=== PATIENT | male | born 1930 | race Caucasian/White ===

== ENCOUNTER → 2016-03-29 | Outpatient (CLI) | payer OTHER ==
[~2016-03-29] MED LIST: ACETAMINOPHEN325 M1; COUMADIN 1MG TAB1 M1 PO; COUMADIN 2 MG TA2 M1 PO; KEFLEX500 MG PO; LEVOTHYROXINE0.05 MG PO; LEVOXYL75 MCG PO; MULTIVITAMINS1 EAC7 PO; NAPROSYN250 MG PO; OSELB75 PO; OXYCODONE HCL5 M1 PO; PREDNISONE 10 M10 MG; PREDNISONE 2.52.5 MG PO; PREDNISONE 5 MG5 M1 PO; TUSSIONEX PENN473 ML PO; VANCOCIN HCL125 MG PO; VOLTAREN GEL 1100 G1 TOP
[2016-03-29 14:18] LABS: HEMOGLOBIN 13.3 gm/dL (14.0-18.0); MCH 28.1 pg (26.0-34.0); MCHC 33.2 % (28.0-37.0); MCV 84.6 fL (80.0-100.0); RBC 4.72 mil/uL (4.50-6.00); RDW 15.1 % (10.5-14.5); WBC 9.6 thou/uL (4.0-11.0)
[2016-03-29 14:32] LABS: CALCIUM 8.9 mg/dL (8.5-10.1); POTASSIUM 4.2 mmol/L (3.5-5.1)
[2016-03-29 14:35] LABS: ALBUMIN 3.3 g/dL (3.4-5.0); TOTAL BILIRUBIN 0.3 mg/dL (<0.1-1.0); TOTAL PROTEIN 6.4 g/dL (6.4-8.2)
[2016-03-30 04:11] LABS: IgA 106 mg/dL (61-437); IgG 772 mg/dL (700-1600); IgM 586 mg/dL (15-143)
== END ==
LOC: RAD 13:45
PROVIDERS: Internal Medicine Pulmonary Disease
DX: J32.9 Chronic sinusitis, unspecified (principal); R09.81 Nasal congestion; R05 Cough; H70.90 Unspecified mastoiditis, unspecified ear; H66.90 Otitis media, unspecified, unspecified ear

== ENCOUNTER → 2017-09-18 | Outpatient (CLI) | payer OTHER | LOC: RAD 14:49 | DX: R05 Cough (principal) ==

== ENCOUNTER → 2018-01-28 | Outpatient (CLI) | payer OTHER | LOC: RAD 13:32 | DX: R13.12 Dysphagia, oropharyngeal phase (principal) ==

== ENCOUNTER 2018-02-07 15:11 | Inpatient (IN) | payer OTHER ==
[~2018-02-07] VITALS: Ht 167.6 cm; Wt 71.7 kg
--- NOTE | ~2018-02-07 | H ---
[facility] [place] [address] HISTORY AND PHYSICAL Name: CHASITY BRYANT Room #: 459-P ADM IN M.R.#: [id number] Admission: 02/07/18 Attend Phys: Teja Birch MD Discharge: Date of : 29 Report #: [id number] THIS REPORT FOR: //name// CC: Teja Birch DATE OF SERVICE: 02/07/2018 CHIEF COMPLAINT: Shaking chills and vomiting. 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 He also had some vomiting and nausea and felt very weak and tired. This hit him rather suddenly. In visiting with him before admission, he told me that he was too shaky to be able to stand up and his pulse was 120 beats per minute and he was showing overt signs of respiratory distress. We notified [facility] ambulance and he was brought to [facility] for direct admission. PAST MEDICAL HISTORY: Includes hypothyroidism, polymyalgia rheumatica, chronic steroid therapy; Gilbert syndrome, gastroesophageal reflux disease. He did have Clostridium difficile a number of years ago and diverticulitis. He has also had hernia surgery. He had cervical neck surgery approximately [address] Chidi Martini. He has had tympanoplasty. He has osteoarthritis, multiple sites and pharyngeal dysphagia. ALLERGIES: He has no known drug allergies. MEDICATIONS: On admission includes prednisone 5 mg daily, levothyroxine 50 mcg daily, a multivitamin daily, pantoprazole 40 mg daily. FAMILY HISTORY: He is from a very large family. Longevity is well established in the family and osteoarthritis. SOCIAL HISTORY: The patient is to Brooke Bryant. He has 3 grown children and 2 grandchildren. He is a nonsmoker and nondrinker, has no vices that I am aware of. I believe he did smoke for short time in the very distant past. He originally came to [facility] [facility] from [place] in the late 1950s. 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 REVIEW OF SYSTEMS: The patient was somewhat confused during the history obtaining part and much of the information was obtained from his . She told me that he was not ill until after breakfast today. He ate a full breakfast including an egg and a banana and some toast and some feta cheese. She states that he got sick in the hours after breakfast and began having nausea and vomiting. When I asked the patient about abdominal pain, he denied it, but to another visiting friend he later said that he did have some slight abdominal [address] [address] HISTORY AND PHYSICAL Name: CHASITY BRYANT Room #: 459-P [facility] IN .R.#: [id number] Admission: 02/07/18 Attend Phys: Teja Birch MD Discharge: Date of : 29 Report #: [id number] discomfort, but he also said that his pain was generalized all over his body. He did not have a bowel movement today, his last one was yesterday, I believe. His chill was severe and he went immediately to bed with it. He had not taken his prednisone this morning, so he went ahead and took that, but did not feel any better after an hour. The decision was made to bring him to the hospital for further evaluation and treatment. It is noteworthy that both his and his daughter have a respiratory ailment at this time. PHYSICAL EXAMINATION: VITAL SIGNS: The patient was very warm to the touch, I did not have a thermometer at the time of my examination. His pulse was 120 per minute radial, his respiratory rate was 30. His oxygen saturation was 92% on room air at home. GENERAL: The patient is a very tired and slightly confused elderly Turkish male with significant distress, especially with respirations. HEENT: The extraocular muscles appear intact. The oropharynx appears dry. No lesions or exudates noted. Sinuses nontender. He has grossly diminished hearing, chronically -- he is at baseline and wears hearing aids. NECK: Not supple. He does have tenting. No adenopathy or thyromegaly or mass are noted. The prior neck surgery scars are noted. LUNGS: Slightly coarse bilaterally. CARDIAC: Reveals a regular rhythm and his peripheral pulses are bounding. ABDOMEN: Slightly distended, but otherwise soft. No rebound or guarding. No visceromegaly or masses noted on exam. EXTREMITIES: There is no cyanosis or clubbing or peripheral edema. His hands are warm to the touch and the skin is dry. NEUROLOGIC: The cranial nerves 2-12 appear to be intact cranio-cerebellar exam. Babinskis was not performed and Romberg's was not performed. He was able after the paramedics arrived and put some oxygen on him to arise out of bed with assistance and walk through his bedroom again with maximal assistance and was able to get on to the gurney under his own power, but with great instability. The rest of his neurologic exam was fairly benign. ASSESSMENT AND PLAN: 1. Strongly suspected sepsis given his apparent fever, tachypnea, tachycardia and shaking chills. I expect his white blood cell count to be high because of the chronic steroids. We will get a chest x-ray and routine labs to start with, and obtain blood cultures and culture the urine if necessary. I would like to avoid adding antibiotics yet, but will likely be adding them in the next hour depending upon our findings. Probably it would be reasonable to go with a very broad spectrum such as Zosyn. We will check for methicillin-resistant Staphylococcus aureus and influenza. The patient did have an episode of Clostridium difficile colitis many years ago, but has not had any recent problems with it and to my knowledge has not taken any antibiotics recently. 2. Gastroesophageal reflux disease. We will continue his proton pump inhibitor therapy. 3. Hypothyroidism. We will continue his medication. [address] [address] HISTORY AND PHYSICAL Name: CHASITY BRYANT Room #: 459-P [facility]#: [id number] Admission: 02/07/18 Attend Phys: Teja Birch MD Discharge: Date of : 29 Report #: [id number] 4. Dehydration. We will hydrate the patient aggressively. 5. Possible history of oropharyngeal dysphagia. He recently had a swallow evaluation and I will need to review the results of that. 6. Other problems as listed above. <ELECTRONICALLY SIGNED> By: Teja Birch MD 02/07/18 1656 1611 1648 Teja Birch MD /nt
--- NOTE | ~2018-02-07 | O ---
[facility] [place] [address] OPERATIVE REPORT Name: CHASITY BRYANT Room #: 204-P [facility] IN M.R.#: [id number] Admission: 02/07/18 Attend Phys: Teja Birch MD Discharge: Date of : 29 Report #: [id number] THIS REPORT FOR: //name// CC: Teja Birch DATE OF SERVICE: 02/08/2018 PREOPERATIVE DIAGNOSES: Acute diverticulitis with perforation and peritonitis. Evidence of early small-bowel obstruction. POSTOPERATIVE DIAGNOSES: Acute diverticulitis with perforation and peritonitis. Evidence of early small-bowel obstruction. PROCEDURES PERFORMED: Exploratory laparotomy with sigmoid resection of the mid to distal sigmoid colon and colostomy (Denise's procedure). ANESTHESIA: General. SURGEON: Davey Sloan MD. COMPLICATIONS: None. ESTIMATED BLOOD LOSS: 50 mL. FINDINGS: The patient did have peritonitis with exudate of the small bowel, the small bowel adhesed to the inflamed sigmoid colon with evidence of bowel obstruction with distended mid small bowel. Decompressed upper jejunum and also ileum. Purulent fluid identified in the abdomen. Cultures obtained. Lower sigmoid diverticulitis identified with inflammatory reaction and purulent exudate. PROCEDURE NOTE: With the patient under general anesthesia, a Cabello catheter was placed. Anesthesia did attempt NG tube placement, but met resistance. Abdomen was prepped and draped in sterile fashion. The patient just received dose of Zosyn. Midline incision was made from above the umbilicus down to the suprapubic area. Midline fascia was identified and incised sharply. The peritoneum was opened. There appeared to be some free air. When I opened the peritoneum, there was an open cavity identified. The small bowel did contain quite a bit of exudate and the small bowel was adhesed to the sigmoid colon. The mid to distal sigmoid colon is markedly inflamed. It was also adhesed to the fat anteriorly, probably located above the bladder. This was divided with blunt and sharp dissection. Small bowel was able to be completely freed from the colon fairly easily. There was exudate along the small bowel. The small bowel was also moderately distended. The small bowel was examined to the proximal small bowel, which was normal caliber and decompressed. Stomach is moderately distended. In the mid jejunum, there is adhesion of the small bowel [facility] [address] [place] [address] OPERATIVE REPORT Name: CHASITY BRYANT Room #: 204-P ADM IN M.R.#: [id number] Admission: 02/07/18 Attend Phys: Teja Birch MD Discharge: Date of : 29 Report #: [id number] down to the sigmoid colon. This looked like an older chronic adhesive band. This was divided. The small bowel was noted to be moderately distended from this point down. Once passing the inflamed small bowel, the distal small bowel was followed and the distal small bowel is normal caliber without any inflammation. There is moderate amount of purulent fluid, did not have any particular odor. Culture was sent. The cecum was identified. The appendix was seen and noted to be normal. The small bowel was then placed back in the abdomen. The stomach is normal looking. I do not see any inflammation or evidence of perforation. Small bowel was packed and Omni retractor was used to hold the abdominal wall and also keeping the small bowel out of the way. The sigmoid was isolated. The sigmoid was divided laterally. The sigmoid colon had extensive diverticulosis. The not inflamed proximal to mid sigmoid colon was isolated, divided with KARY. The mesentery of the sigmoid colon from this point on down distally was divided with LigaSure. Mesocolon was divided fairly close to the bowel, staying away from the lateral wall. Essentially, mesentery was divided along the midline. Once I went past the inflamed colon, the mesentery dissection was carried to the edge of the bowel and a contour 55 was used to divide the bowel distally. Sharp male scissor dissection was then used to divide the colon from the staple line. Well-formed staple line seen. No bleeding was identified. At this point, the specimen was removed and handed off the field. This is about a 6-8 inch segment with the inflamed part distally. Copious irrigation was then performed at all 4 quadrants and irrigation was clear and suctioned out. The patient's proximal sigmoid colon was freed from the wall and lengthened for colostomy. The patient did have a fairly short omentum. This was brought down as much possible. The left lower quadrant, a small shoalwater of skin was excised. The subcutaneous fat was resected and the fascia was opened in a cruciate manner. The muscle was spread. The posterior layer was opened. The ostomy was brought out. Initially due to the pericolonic fat, it did not come out very much, but I did divide this excessive fat with LigaSure and then the colon was brought out further. The midline fascia was closed with running looped 0 Prolene suture, started cephalad and down to in the lower aspect where the suture was tied to each other. Skin was irrigated, closed with stapler. The ostomy was immature. The staple line for the ostomy was trimmed and 3-0 and 4-0 chromic suture was used to mature the colostomy. Ostomy bag was applied. A #19 Apolinar drain was brought in, left in the pelvis from the right side. This was placed without difficulty. This was sutured to the skin with 2-0 silk and then the drain dressing was placed around it. The patient will be kept on the ventilator and taken to Intensive Care Unit for postop care. <ELECTRONICALLY SIGNED> By: Davey Sloan MD 02/13/18 1457 1606 1730 Davey Sloan MD /nt
--- NOTE | ~2018-02-07 | EKG ---
[address] [address] ELECTROCARDIOGRAM REPORT Name: CHASITY BRYANT Room #: 459- ADM IN M.R.#: [id number] Admission: 02/07/18 Attend Phys: Teja Birch MD Discharge: Date of : 29 Report #: [id number] THIS REPORT FOR: //name// [facility] Test Date: 2018-02-07 Test Time: 16:14:12 Pat Name: CHASITY BRYANT Department: Room: 459 Gender: M Card Decorator: : 1930 Requested By: Teja Birch Order Number: [id number] MD: Danielito Heath Measurements Intervals [place] Rate: 99 P: 42 TN: 157 QRS: -9 QRSD: 123 T: 143 QT: 359 QTc: 461 Interpretive Statements Sinus rhythm Probable left atrial enlargement Left bundle branch block Compared to ECG 11/02/2009 11:56:02 No significant change Electronically Signed On 02-08-2018 10:24:18 MARKET RESEARCH ASSOCIATE by Danielito Heath [email or web address] <ELECTRONICALLY SIGNED> By: Danielito Heath MD 02/08/18 1024 1614 1614 Danielito Heath MD /DESI
--- NOTE | ~2018-02-07 | EKG ---
[address] [address] ELECTROCARDIOGRAM REPORT Name: CHASITY BRYANT Room #: 204-P ADM IN M.R.#: [id number] Admission: 02/07/18 Attend Phys: Teja Birch MD Discharge: Date of : 29 Report #: [id number] THIS REPORT FOR: //name// [facility] Test Date: 2018-02-17 Test Time: 06:22:45 Pat Name: CHASITY BRYANT Department: Room: 204 P Gender: M Outside Sales Account Manager: GIO : 1930 Requested By: Patrice Caballero Order Number: [id number] MD: Ruben Salinas Measurements Intervals [place] Rate: 85 P: 39 CA: 176 QRS: -19 QRSD: 124 T: 113 QT: 409 QTc: 487 Interpretive Statements Sinus rhythm Atrial premature complexes Left bundle branch block Compared to ECG 02/07/2018 16:14:12 No significant change was found Electronically Signed On 02-17-2018 8:39:24 [employer] PRESIDENT [employer]ELOPMENT by Ruben Salinas [email or web address] <ELECTRONICALLY SIGNED> By: Ruben Salinas MD, [facility] 02/17/18 0839 D: 12621 1 Ruben Salinas MD, FAC /EPI
--- NOTE | ~2018-02-07 | HC ---
[facility] [address] CONSULTATION Name: CHASITY BRYANT Room #: 238-P [facility] IN ..#: [id number] Admission: 02/07/18 Attend Phys: Teja Birch MD Discharge: Date of : 29 Report #: [id number] THIS REPORT FOR: //name// CC: Teja Birch TYPE OF REPORT: Pulmonary consultation. PRIMARY CARE PHYSICIAN: Teja Birch M.D. REASON FOR REFERRAL: Hypoxia and pneumonia. HISTORY OF PRESENT ILLNESS: The patient is an 87-year-old Moh[place] male who presents to the hospital with shaking chills and vomiting. The patient is felt to have aspirated. A Pulmonary consultation was requested. The patient is a retired surgeon. He has a history of polymyalgia rheumatica and is on prednisone and chronic steroids. He has a history of hypothyroidism, Gilbert syndrome and gastroesophageal reflux disease. He was in his usual state of health until the day of admission when he started to develop shaking chills, nausea and vomiting and he was very weak and tired. Chest x-ray suggests possible mild bibasilar infiltrates. The patient also complained of abdominal pain. CT of the abdomen and pelvis was performed. Preliminary report suggests sigmoid diverticulitis with minimal intra-abdominal air. A chest x-ray performed earlier today shows moderate subdiaphragmatic air in the right. This morning, he is not complaining of more abdominal pain. He has been seen by General Surgery. Plans are to take him to OR later today for probable perforated bowel. Otherwise, denies any recent cough, productive of purulent sputum. Denies any past history of tobacco use. Denies any history of chronic lung disease. PAST MEDICAL HISTORY: As mentioned above including a history of C. difficile colitis, history of diverticulitis, status post herniorrhaphy, prior cervical spine surgery, tympanoplasty, osteoarthritis and pharyngeal dysphagia. ALLERGIES: None to medications. FAMILY HISTORY: Notable for osteoarthritis. 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 He is a lifetime nonsmoker. Denies alcohol use. REVIEW OF SYSTEMS: As mentioned above, otherwise 10-point system review negative. [facility] [address] [place] [address] CONSULTATION Name: CHASITY BRYANT Room #: 238-P [facility] IN [facility]#: [id number] Admission: 02/07/18 Attend Phys: Teja Birch MD Discharge: Date of : 29 Report #: [id number] PHYSICAL EXAMINATION: GENERAL: He is awake and alert, in moderate distress due to abdominal pain. VITAL SIGNS: Temperature on admission was 106 degrees Fahrenheit, pulse is 98, respiratory rate is 28, blood pressure 94/46 mmHg and saturation 96%. HEENT: Normocephalic and atraumatic. NECK: Supple, without any lymphadenopathy or thyromegaly. CHEST: Breath sounds are fair due to poor effort. Few scattered crackles in the bases. No wheezes. CARDIOVASCULAR: Normal S1 and S2. No murmurs or gallop. There is no JVD. There is no carotid bruit. Pulses are 2+/4+ bilaterally. ABDOMEN: Moderately distended, tender. Exam only by General Surgery suggest rebound tenderness. GENITOURINARY: Deferred. RECTAL: Deferred. EXTREMITIES: There is no edema, cyanosis or clubbing. RADIOLOGICAL DATA: CT abdomen, pelvis and chest x-ray as mentioned above. The CT abdomen and pelvis shows sigmoid diverticula, minimal free intraperitoneal air, extensive colonic diverticula, cholelithiasis, renal masses suggestive of cysts, bibasilar atelectasis and infiltrates. Chest x-ray today this morning showing moderate right subdiaphragmatic air. Mild interstitial infiltrates seen in the bases. LABORATORY DATA: Sodium 139, potassium 4.2, chloride 105, CO2 is 25, BUN is 24 and creatinine is 1.2. Liver enzymes are grossly unremarkable with mildly elevated alkaline phosphatase and albumin 2.6. WBC is 16,200 without a significant bandemia. Platelets are normal. Arterial blood gas revealed pH 7.45, pCO2 of 29 and pO2 of 74 on 4 liters of O2. IMPRESSION: 1. Acute chills, nausea, vomiting and hypoxia in this 87-year-old white male. The patient is suspected to have aspirated. CT abdomen and pelvis noted along with chest x-ray as mentioned above showing probable bowel perforation. 2. Acute hypoxic respiratory failure secondary to sepsis due to intraabdominal process. 3. Possible aspiration pneumonia. 4. Abdominal pain, probable bowel perforation likely related to diverticulitis. The patient will be sent to Operating Room later today. 5. Severe protein-calorie malnutrition with albumin 2.6. 6. Renal insufficiency appears to be chronic with a baseline creatinine around 1.4-1.2. 7. Severe sepsis related to intraabdominal process. 8. Chronic steroids for polymyalgia rheumatica. The patient will need stress dose steroids following surgery. 9. Hypothyroidism. [facility] [address] [place] [address] CONSULTATION Name: CHASITY BRYANT Room #: 238-P [facility] IN [place]#: [id number] Admission: 02/07/18 Attend Phys: Teja Birch MD Discharge: Date of : 29 Report #: [id number] 10. Gastroesophageal reflux disease. RECOMMENDATIONS: Agree plans for surgery today. Postoperatively, he will need stress dose corticosteroids. DVT and GI prophylaxis recommended. We would recommend initiating sepsis protocol, broad-spectrum antibiotics to cover intra-abdominal infections. He is currently on Zosyn and vancomycin. Postoperatively, I would recommend ICU monitoring. Findings were discussed with the patient's daughter along with General Surgery. Thank you for this consultation. <ELECTRONICALLY SIGNED> By: Alessandro Joy MD 02/09/18 1407 1324 2247 Alessandro Joy MD /nt
--- NOTE | ~2018-02-07 | PATH ---
[facility] [address] [place] [address] PATHOLOGY RPT PROCEDURE Name: JANIS TAMEZ Room #: 204-P ADM IN M.R.#: [id number] Admission: 02/07/18 Date of : 29 Discharge: Report #: [id number] Path Case #: [id number] [facility] Accession Number: [id number] . 01 Material submitted: . SIGMOID COLON . 01 Clinical history: . Perforated diverticulum . 02 Diagnosis: Large intestine, sigmoid colon, resection: - Marked acute diverticulitis with abscess formation and marked serositis compatible with the history of perforation. - Extensive diverticulosis. - Margins of resection showing unremarkable mucosa. - Negative for dysplasia or malignancy. (IUV:kane; 02/11/2018) QMS/02/11/2018 . 02 Electronically signed: . Cleo Jenkins MD, Pathologist NPI- [id number] . 01 Gross description: . The specimen is received in formalin, labeled "Janis Tamez, sigmoid colon". Received is an unoriented segment of colon measuring 18.2 cm in length and ranges in diameter from 2.8 to 3.3 cm. One margin is stapled closed and the opposite margin is open. The serosal surface is pink-ruvalcaba and irregular in contour with a slight amount of overlying exudate. The attached pericolic fat measures 3.0 cm in thickness. The specimen is opened along the antimesenteric line to reveal light thomson to pink-thomson mucosa with moderate architectural folds inked. Multiple diverticular are present, and there is an area of perforation located 7.5 cm from the open margin. The surrounding serosal surface is inked black. The diverticular ranging in size from 0.2 to 1.5 cm and are impacted with fecal material. Sectioning through the attached pericolic fat reveals no readily identifiable lymph nodes. . Also received within the specimen tender is a segment small segment of colon with one open margin and one stapled margin measuring 0.9 cm in length by 2.5 cm in diameter. The specimen is submitted representatively as follows: . A1 stapled margin A2 open margin A3 guest relations representative section through area of perforation [address] [address] PATHOLOGY RPT PROCEDURE Name: JANIS TAMEZ Joshua Room #: 204-P [facility] IN M.R.#: [id number] Admission: 02/07/18 Date of : 29 Discharge: Report #: [id number] Path Case #: [id number] A4-A5 guest relations representative sections of diverticula A6 guest relations representative sections of separately submitted segment of colon. (CAA; 02/10/2018) QAC/QAC . 02 Pathologist provided ICD-10: K57.30, K57.32, K65.8 . 02 CPT . 665843 Specimen Comment: A courtesy copy of this report has been sent to Specimen Comment: [phone], . Specimen Comment: Report sent to / DR GAINES Specimen Comment: A duplicate report has been generated due to demographic updates. Performed at: [address] [facility] [id number] MD Darrion Maria MD Phone: [phone] Performed at: [address] [id number] MD Cleo Jenkins MD Phone: [phone]
--- NOTE | ~2018-02-07 | HC ---
[facility] [place] [address] CONSULTATION Name: CHASITY BRYANT Room #: 238-[facility] ..#: [id number] Admission: 02/07/18 Attend Phys: Teja Birch MD Discharge: Date of : 29 Report #: [id number] THIS REPORT FOR: //name// CC: Teja Birch DATE OF SERVICE: 02/08/2018 CONSULTATION: Infectious Diseases. 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 The patient on 02/07/2018 felt acutely ill with nausea, vomiting, weakness with associated fevers, chills and rigors. He comes to the Emergency Room by ambulance, was noted to have a very high white count, free air under the diaphragm on radiographs. He did not respond to medical therapy, within 24 hours ago, he went to the Operating Room where perforated diverticulitis with diffuse peritoneal soilage was noted. The patient returned from the OR on a ventilator. Infectious Disease consultation was requested to assist with antibiotic management. PAST MEDICAL HISTORY: Significant for polymyalgia rheumatica, treated with steroids usually 5 mg a day, but recently boosted to 15 mg a day. Other diagnoses include hypothyroidism, Gilbert syndrome, gastroesophageal reflux, diverticulitis, dysphagia, hearing loss. PAST SURGICAL HISTORY: Includes hernia repair and cervical spine surgery. MEDICATION RECONCILIATION: Current medications include levothyroxine 50 mcg IV every 72 hours, pantoprazole 40 mg IV daily, enoxaparin 40 mg subcutaneously daily, hydrocortisone 100 mg q. 8, ondansetron 4 mg IV q. 6 p.r.n., levalbuterol 0.63 mg aerosol q. 6 hours, vancomycin 750 mg every 12 hours, Zosyn 3.375 grams every 8 hours, glucagon, glucose, insulin as needed to maintain blood sugar, epinephrine and vasopressin drip p.r.n. and p.r.n. acetaminophen, lorazepam, midazolam, morphine, propofol. SOCIAL HISTORY: The patient is . 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 He is initially from [place], but has been in this country for over 50 years. No history of use of tobacco, alcohol nor drugs. REVIEW OF SYSTEMS: Unavailable as the patient is sedated on a ventilator. PHYSICAL EXAMINATION: GENERAL: The patient appears his stated age, comfortable on the ventilator, not in any distress. VITAL SIGNS: The patient is afebrile. In the ER, he was noted to have a temperature of 106.0. Dr. Birch noted the patient felt very [place] [address] CONSULTATION Name: CHASITY BRYANT Room #: 238[facility] ..#: [id number] Admission: 02/07/18 Attend Phys: Teja Birch MD Discharge: Date of : 29 Report #: [id number] this probably is a true temperature and not a typographical error on input in the data. He has been essentially afebrile since initial reading. Other vital signs are stable. SKIN: Shows no rash nor exanthem. ENT: Negative. Nasogastric and endotracheal tubes appear to be in appropriate position. CARDIOVASCULAR: Heart sounds are normal. LUNGS: Clear. ABDOMEN: Belly shows midline incision. It is soft. There is a QUOC drain from the right lower quadrant with about 70 mL of red serosanguineous fluid. EXTREMITIES: Thin, but otherwise unremarkable. LABORATORY DATA: White count is 22,000, hemoglobin 12, hematocrit 30%, platelet is 256,000. The electrolytes are normal, glucose 161. Liver function tests are normal. Urinalysis is negative. Blood cultures negative. Cultures from the abdominal surgery are pending. Chest x-ray shows left lower lobe. IMPRESSION: It appears that the patient has suffered ruptured diverticulitis with diffuse peritonitis. He does have a history of PMR with a low-dose steroid use and now is on stress dose steroids. I hope these can be tapered quickly. He currently is on vancomycin and Zosyn. I would not expect MRSA to be a major factor in this setting. The patient had not been on antibiotics and had not been around a healthcare environment. The Zosyn should offer excellent coverage for the usual bowel marcos, which become pathogens in this setting. We will need to watch the pulmonary status and chest x-ray to make sure the patient does not develop pneumonia associated with this illness. For now, I will continue the patient on Zosyn, stop the vancomycin and cancel vancomycin levels. We will continue supportive postoperative care and hope for a speedy recovery. I appreciate the opportunity to offer input in the care of this pleasant gentleman. Thank you for requesting infectious disease input. Dr. Caballero will return on Friday for additional followup. By: [id number] Lenin Colin MD /laine
--- NOTE | ~2018-02-07 | 2DMMODE ---
[facility] [employer] [place] [address] 2 D/M-MODE ECHOCARDIOGRAM Name: CHASITY BRYANT Room #: 238-P ADM IN [facility]#: [id number] Admission: 02/07/18 Attend Phys: Teja Birch MD Discharge: Date of : 29 Date of Service: 02/09/18 1039 Report #: [id number] THIS REPORT FOR: //name// APPROVED REPORT Study performed: 02/09/2018 09:12:32 EXAM: Comprehensive 2D, Doppler, and color-flow Echocardiogram Patient Location: ICU Room #: 238 Status: routine BSA: 1.85 HR: 88 bpm BP: 131/65 mmHg Rhythm: LBBB/Irregular Other Information Study Quality: Adequate Indications Aortic stenosis, LBBB. 2D Dimensions RVDd: 34.80 mm IVSd: 13.00 (7-11mm) LVOT Diam: 20.26 (18-24mm) LVDd: 45.96 mm PWd: 12.73 (7-11mm) Ascending Ao: 38.75 (22-36mm) LVDs: 34.80 (25-40mm) Aortic Root: 38.68 mm Volumes Left Atrial Volume (Systole) Single Plane 4CH: 49.80 mL Single Plane 2CH: 60.36 mL LA ESV Index: 31.00 mL/m2 Aortic Valve AoV Peak Wilfrido.: 4.16 m/s AO Peak Gr.: 69.13 mmHg LVOT Max P.01 mmHg AO Mean Gr.: 43.31 mmHg AO V2 Mean: 3.16 m/s LVOT Max V: 1.00 m/s AO V2 VTI: 109.50 cm AMAYA Vmax: 0.78 cm2 Mitral Valve E/A Ratio: 0.7 [facility] [employer] [place] [place] [address] 2 D/M-MODE ECHOCARDIOGRAM Name: CHASITY BRYANT Room #: 238-P [facility]#: [id number] Admission: 02/07/18 Attend Phys: Teja Birch MD Discharge: Date of : 29 Date of Service: 02/09/18 1039 Report #: [id number] MV Decel. Time: 223.52 ms MV E Max Wilfrido.: 0.81 m/s MV A Wilfrido.: 1.18 m/s MV PHT: 64.82 ms IVRT: 69.20 ms Pulmonary Valve PV Peak Wilfrido.: 1.09 m/s PV Peak Gr.: 4.75 mmHg Tricuspid Valve TR Peak Wilfrido.: 2.38 m/s TR Peak Gr.: 22.68 mmHg Left Ventricle The left ventricle is normal size. There is normal LV segmental wall motion. Mild concentric left ventricular hypertrophy. Left ventricular systolic function is low normal. LVEF is 50%. Mild diastolic dysfunction is present (impaired relaxation pattern). Right Ventricle The right ventricle is normal size. The right ventricular systolic function is normal. Atria The left atrium size is normal. The right atrium size is normal. Aortic Valve Aortic valve is heavily calcified, severely stenotic No aortic regurgitation is present. There is severe valvular aortic stenosis. Calculated aortic valve area is 0.8 cm2 with maximum pressure gradient of 69 mmHg and mean pressure gradient of 43 mmHg. Mitral Valve Moderate mitral annular calcification. Mild mitral regurgitation. No evidence of mitral valve stenosis. Tricuspid Valve The tricuspid valve is normal in structure. Mild tricuspid regurgitation. Estimated PAP is 23mmHg plus the right atrial pressure. Pulmonic Valve The pulmonary valve is normal in structure. Mild pulmonic regurgitation. [facility] [address] [place] [address] 2 D/M-MODE ECHOCARDIOGRAM Name: CHASITY BRYANT Room #: 238-P [facility] IN [facility]#: [id number] Admission: 02/07/18 Attend Phys: Teja Birch MD Discharge: Date of : 29 Date of Service: 02/09/18 1039 Report #: [id number] Great Vessels Aortic root is mildly dilated. The ascending aorta is mildly dilated. IVC is not visualized. Pericardium There is no pericardial effusion. <Conclusion> Left ventricular systolic function is low normal. LVEF is 50%. Mild diastolic dysfunction Aortic valve is heavily calcified, severely stenotic Calculated aortic valve area 0.8 cm2 with maximum pressure gradient of 69 mmHg and mean pressure gradient of 43 mmHg. Moderate mitral annular calcification. Mild mitral regurgitation. Mild tricuspid regurgitation. Estimated pulmonary artery pressure of 23mmHg plus the right atrial pressure. There is no pericardial effusion. <ELECTRONICALLY SIGNED> By: Ruben Salinas MD, [facility] 02/09/18 1039 [id number] [id number] Ruben Salinas MD, FACC /INF
--- NOTE | ~2018-02-07 | HC ---
[facility] [place] [address] CONSULTATION Name: CHASITY BRYANT Room #: 204-P [facility] IN ..#: [id number] Admission: 02/07/18 Attend Phys: Teja Birch MD Discharge: Date of : 29 Report #: [id number] THIS REPORT FOR: //name// CC: Teja Birch REASON FOR CONSULTATION: Diverticulitis with microperforation. HISTORY OF PRESENT ILLNESS: The patient is an 87-year-old who became sick yesterday around 11:00 or so. The patient was out with sprinklers, he was going to turn the sprinklers off. The patient developed intense chills at that time. The patient had to go inside. He had some diffuse abdominal pain, vomited once. The patient was seen by Dr. Teja Birch and recommended to be admitted for treatment. The patient had some evidence of lower lobe pneumonitis. CT scan was performed that showed diverticulitis with bubbles around the colon in the lower abdomen and pelvis area. The patient had white count of 16,200. His lactate was 1.72. The patient during the night had increasing pain, now more in the right lower quadrant area. 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 He also said his abdomen feels tight. He has had known history of diverticulosis. Possible had a diverticulitis in 2009 along with C. diff. The patient on examination is alert and in yzgw-sx-uhjdxtev distress. He is very thirsty. His abdomen is fairly distended. It is soft. It is tympanitic, particularly the upper abdomen. He does have tenderness to percussion of the abdomen. He does have rebound diffusely. He is most tender in the lower abdomen and a little bit left of midline. He does have guarding. Bowel sounds are hypoactive with some high pitched bowel sounds. The patient did have a chest x-ray just recently and looking at the chest x-ray I think he does have more abundant free air under diaphragm. His white count today is slightly improved at 14,000 and his creatinine is better at 1.2. He has 3 bands. IMPRESSION: The patient is an 87-year-old who started to have chills yesterday, has had some issue with lung with pulmonary problem for the last several months. He may have aspiration issue. The patient was seen by water softener installer who increased his steroids from 5 to 15 mg the last month. He is on steroids for polymyalgia rheumatica. He is quite tender. His finding is consistent with peritonitis. The CT yesterday did not show much free air, just small bubbles, but with the amount of free air I think he probably some time during the night started to leak more. This would go along with also his pain, which intensified during the night. RECOMMENDATION: With the patient having evidence of peritonitis, I am recommending that he proceed with exploratory laparotomy. I think he has a ruptured diverticulitis based on his clinical and CT finding. We will recommend he have a colectomy if proven right during the laparotomy and also he will need [address] [address] CONSULTATION Name: CHASITY BRYANT Room #: 204-P ADM IN [facility]#: [id number] Admission: 02/07/18 Attend Phys: Teja Birch MD Discharge: Date of : 29 Report #: [id number] to have a colostomy. The patient again is well aware of the disease process and knows that if he had a ruptured diverticulitis that he will need to have a colostomy to treat this emergent condition. I did speak with Dr. Birch regarding my impression. I also spoke with Dr. Aquino and also Dr. Heath and got the okay to proceed with surgery. The patient does have moderately severe aortic stenosis. The patient has been started on antibiotics and he is getting scheduled antibiotic of vancomycin and Zosyn. <ELECTRONICALLY SIGNED> By: Davey Sloan MD 02/13/18 1457 [id number] [id number] Davey Sloan MD /nt
[2018-02-07 15:58] VITALS: BP 98/53
[2018-02-07 17:05] LABS: WBC 16.2 thou/uL (4.0-11.0)
[2018-02-07 17:07] LABS: ABSOLUTE NEUTROPHILS 13.6 thou/uL (1.4-8.2); BASOPHILS 0.2 % (0.0-2.0); HEMATOCRIT 37.9 % (42.0-52.0); HEMOGLOBIN 12.7 gm/dL (14.0-18.0); LYMPHOCYTES 5.5 % (24.0-44.0); MCH 28.2 pg (26.0-34.0); MCHC 33.5 g/dL (28.0-37.0); MONOCYTES 10.1 % (1.0-8.0); PLATELET COUNT 290 thou/uL (150-400); POLYS 84.2 % (36.0-66.0); RBC 4.51 mil/uL (4.50-6.00)
[2018-02-07 17:10] LABS: CALCIUM 9.1 mg/dL (8.5-10.1); CREATININE 1.4 mg/dL (0.7-1.3); POTASSIUM 3.9 mmol/L (3.5-5.1)
[2018-02-07 17:16] LABS: ALBUMIN 2.6 g/dL (3.4-5.0); DIRECT BILIRUBIN 0.2 mg/dL (<0.1-0.3); MAGNESIUM 1.7 mg/dL (1.8-2.4); TOTAL BILIRUBIN 0.7 mg/dL (<0.1-1.0); TOTAL PROTEIN 6.3 g/dL (6.4-8.2)
[2018-02-07 17:22] LABS: URINE BILIRUBIN NEGATIVE (Negative); URINE BLOOD NEGATIVE (Negative); URINE CLARITY CLEAR; URINE COLOR YELLOW; URINE GLUCOSE-RANDOM* NEGATIVE (Negative); URINE KETONES NEGATIVE (Negative); URINE LEUKOCYTES-REFLEX NEGATIVE (Negative); URINE NITRITE-REFLEX NEGATIVE (Negative); URINE PROTEIN (DIPSTICK) NEGATIVE (Negative); URINE UROBILINOGEN 0.2 E.U./dl (0.2-1.0)
[2018-02-07 17:29] LABS: MUCUS >6 Heavy strn/LPF (None Seen); SQUAMOUS 0-3 Few /LPF (0-3)
[2018-02-07 17:30] LABS: BACTERIA-REFLEX None Seen /HPF (None Seen); URINE RBC 0-2 Rare /HPF (0-2); URINE WBC-REFLEX 0-5 Rare /HPF (0-5)
[2018-02-07 18:04] LABS: BE(vivo) -2.2 mmol/L (-2 to +3); HCO3 20.5 mmol/L (22.0-26.0); PCO2 29.7 mmHg (35.0-45.0); PO2 74.9 mmHg (80.0-100.0); pH 7.457 (7.360-7.450); sO2 95.9 % (92.0-98.0)
[2018-02-07 19:07] VITALS: BP 94/46
[2018-02-08] VITALS (23 sets, daily range): BP systolic 85–132; BP diastolic 41–69
[2018-02-08 05:42] LABS: HEMATOCRIT 34.9 % (42.0-52.0); HEMOGLOBIN 11.4 gm/dL (14.0-18.0); MCH 27.6 pg (26.0-34.0); MCHC 32.8 g/dL (28.0-37.0); MCV 84.4 fL (80.0-100.0); PLATELET COUNT 261 thou/uL (150-400); RBC 4.13 mil/uL (4.50-6.00); RDW 15.2 % (10.5-14.5); WBC 14.9 thou/uL (4.0-11.0)
[2018-02-08 05:53] LABS: INR 1.1; PROTIME 11.5 Seconds (9.3-11.4)
[2018-02-08 05:54] LABS: CALCIUM 8.4 mg/dL (8.5-10.1); CREATININE 1.2 mg/dL (0.7-1.3); POTASSIUM 4.2 mmol/L (3.5-5.1)
[2018-02-08 09:21] LABS: ANISOCYTOSIS 1+
[2018-02-08 15:38] LABS: BE(vivo) -5.9 mmol/L (-2 to +3); HCO3 22.3 mmol/L (22.0-26.0); PCO2 54.8 mmHg (35.0-45.0); PO2 83.2 mmHg (80.0-100.0); pH 7.227 (7.360-7.450); sO2 94.1 % (92.0-98.0)
[2018-02-08 16:06] LABS: BE(vivo) -5.6 mmol/L (-2 to +3); HCO3 20.6 mmol/L (22.0-26.0); PCO2 42.6 mmHg (35.0-45.0); PO2 79.4 mmHg (80.0-100.0); pH 7.302 (7.360-7.450); sO2 94.6 % (92.0-98.0)
[2018-02-08 17:06] LABS: HEMOGLOBIN 12.4 gm/dL (14.0-18.0); MCH 27.6 pg (26.0-34.0); MCHC 32.5 g/dL (28.0-37.0); MCV 84.8 fL (80.0-100.0); RBC 4.48 mil/uL (4.50-6.00); RDW 15.7 % (10.5-14.5); WBC 22.3 thou/uL (4.0-11.0)
[2018-02-08 17:41] LABS: CALCIUM 7.7 mg/dL (8.5-10.1); CREATININE 1.1 mg/dL (0.7-1.3); POTASSIUM 4.2 mmol/L (3.5-5.1)
[2018-02-08 17:47] LABS: ALBUMIN 2.2 g/dL (3.4-5.0); TOTAL BILIRUBIN 1.7 mg/dL (<0.1-1.0); TOTAL PROTEIN 5.4 g/dL (6.4-8.2)
[2018-02-08 17:50] LABS: APTT 32.7 Seconds (24.5-32.8); INR 1.2; PROTIME 12.3 Seconds (9.3-11.4)
[2018-02-08 17:55] LABS: FIBRINOGEN 427.1 mg/dL (210-360)
[2018-02-08 20:05] LABS: URINE BILIRUBIN 1+ (Negative); URINE BLOOD TRACE (Negative); URINE CLARITY CLEAR; URINE COLOR YELLOW; URINE GLUCOSE-RANDOM* NEGATIVE (Negative); URINE KETONES TRACE (Negative); URINE LEUKOCYTES-REFLEX NEGATIVE (Negative); URINE NITRITE-REFLEX NEGATIVE (Negative); URINE PROTEIN (DIPSTICK) TRACE (Negative); URINE SPECIFIC GRAVITY >= 1.030 (1.005-1.035)
[2018-02-08 20:09] LABS: ICTOTEST (BILI CONFIRMATORY) Positive (Negative)
[2018-02-08 22:17] LABS: CALCIUM 7.2 mg/dL (8.5-10.1); CREATININE 1.1 mg/dL (0.7-1.3); POTASSIUM 4.1 mmol/L (3.5-5.1)
[2018-02-09] VITALS (85 sets, daily range): BP systolic 83–142; BP diastolic 36–93
[2018-02-09 01:40] LABS: CALCIUM 7.4 mg/dL (8.5-10.1); CREATININE 1.2 mg/dL (0.7-1.3); POTASSIUM 4.2 mmol/L (3.5-5.1)
[2018-02-09 05:12] LABS: BE(vivo) -4.3 mmol/L (-2 to +3); HCO3 19.6 mmol/L (22.0-26.0); PCO2 32.4 mmHg (35.0-45.0); PO2 169.8 mmHg (80.0-100.0); pH 7.399 (7.360-7.450); sO2 99.2 % (92.0-98.0)
[2018-02-09 05:20] LABS: HEMATOCRIT 36.1 % (42.0-52.0); HEMOGLOBIN 11.7 gm/dL (14.0-18.0); MCH 27.8 pg (26.0-34.0); MCHC 32.4 g/dL (28.0-37.0); MCV 85.6 fL (80.0-100.0); PLATELET COUNT 292 thou/uL (150-400); RBC 4.21 mil/uL (4.50-6.00); RDW 15.8 % (10.5-14.5); WBC 21.5 thou/uL (4.0-11.0)
[2018-02-09 05:33] LABS: CALCIUM 7.8 mg/dL (8.5-10.1); CREATININE 1.1 mg/dL (0.7-1.3)
[2018-02-09 08:40] LABS: ABSOLUTE NEUTROPHILS 19.8 thou/uL (1.4-8.2)
[2018-02-09 08:41] LABS: PLATELET ESTIMATE NORMAL
[2018-02-09 12:11] LABS: BE(vivo) -1.6 mmol/L (-2 to +3); PCO2 33.6 mmHg (35.0-45.0); PO2 109.4 mmHg (80.0-100.0); pH 7.434 (7.360-7.450); sO2 98.2 % (92.0-98.0)
[2018-02-10] VITALS (15 sets, daily range): BP systolic 97–137; BP diastolic 44–77
[2018-02-10 05:58] LABS: ABSOLUTE NEUTROPHILS 10.4 thou/uL (1.4-8.2); HEMATOCRIT 32.4 % (42.0-52.0); HEMOGLOBIN 10.9 gm/dL (14.0-18.0); LYMPHOCYTES 7.7 % (24.0-44.0); MCH 28.3 pg (26.0-34.0); MCHC 33.5 g/dL (28.0-37.0); MCV 84.7 fL (80.0-100.0); MONOCYTES 7.3 % (1.0-8.0); PLATELET COUNT 224 thou/uL (150-400); RBC 3.83 mil/uL (4.50-6.00); RDW 15.7 % (10.5-14.5); WBC 12.2 thou/uL (4.0-11.0)
[2018-02-10 06:04] LABS: CALCIUM 8.5 mg/dL (8.5-10.1); CREATININE 1.1 mg/dL (0.7-1.3); POTASSIUM 3.6 mmol/L (3.5-5.1)
[2018-02-11 05:40] VITALS: BP 151/80
[2018-02-11 07:18] VITALS: BP 138/76
[2018-02-11 08:08] LABS: HEMATOCRIT 33.7 % (42.0-52.0); MCH 27.4 pg (26.0-34.0); MCHC 32.7 g/dL (28.0-37.0); MCV 83.8 fL (80.0-100.0); RBC 4.03 mil/uL (4.50-6.00); WBC 10.8 thou/uL (4.0-11.0)
[2018-02-11 08:23] LABS: CREATININE 1.1 mg/dL (0.7-1.3); MAGNESIUM 2.2 mg/dL (1.8-2.4); POTASSIUM 3.1 mmol/L (3.5-5.1)
[2018-02-11 12:03] VITALS: BP 117/58
[2018-02-11 19:51] VITALS: BP 117/66
[2018-02-12 04:44] VITALS: BP 130/76
[2018-02-12 07:05] LABS: CALCIUM 8.7 mg/dL (8.5-10.1); POTASSIUM 3.6 mmol/L (3.5-5.1)
[2018-02-12 08:23] VITALS: BP 121/61
[2018-02-12 12:03] VITALS: BP 131/78
[2018-02-12 15:57] VITALS: BP 101/43
[2018-02-12 20:30] VITALS: BP 113/48
[2018-02-13 04:29] VITALS: BP 123/66
[2018-02-13 08:05] VITALS: BP 152/68
[2018-02-13 11:26] VITALS: BP 192/70
[2018-02-13 15:35] VITALS: BP 149/77
[2018-02-13 20:34] VITALS: BP 139/60
[2018-02-14 05:15] VITALS: BP 126/64
[2018-02-14 06:34] LABS: HEMOGLOBIN 10.2 gm/dL (14.0-18.0); MCH 27.9 pg (26.0-34.0); MCHC 32.9 g/dL (28.0-37.0); MCV 84.6 fL (80.0-100.0); RBC 3.67 mil/uL (4.50-6.00); WBC 10.1 thou/uL (4.0-11.0)
[2018-02-14 06:52] LABS: ALBUMIN 1.7 g/dL (3.4-5.0); CALCIUM 7.8 mg/dL (8.5-10.1); CREATININE 0.8 mg/dL (0.7-1.3); DIRECT BILIRUBIN 0.7 mg/dL (<0.1-0.3); POTASSIUM 3.5 mmol/L (3.5-5.1); TOTAL BILIRUBIN 1.6 mg/dL (<0.1-1.0); TOTAL PROTEIN 4.9 g/dL (6.4-8.2)
[2018-02-14 07:25] VITALS: BP 141/71
[2018-02-14 11:25] VITALS: BP 131/61
[2018-02-14 15:20] VITALS: BP 112/53
[2018-02-14 20:36] VITALS: BP 106/59
[2018-02-15 05:19] VITALS: BP 117/70
[2018-02-15 05:53] LABS: HEMATOCRIT 32.8 % (42.0-52.0); HEMOGLOBIN 10.7 gm/dL (14.0-18.0); MCH 27.8 pg (26.0-34.0); MCHC 32.7 g/dL (28.0-37.0); MCV 85.1 fL (80.0-100.0); RBC 3.85 mil/uL (4.50-6.00); WBC 9.2 thou/uL (4.0-11.0)
[2018-02-15 06:12] LABS: ALBUMIN 1.8 g/dL (3.4-5.0); CALCIUM 8.1 mg/dL (8.5-10.1); CREATININE 0.9 mg/dL (0.7-1.3); POTASSIUM 3.5 mmol/L (3.5-5.1); TOTAL BILIRUBIN 1.3 mg/dL (<0.1-1.0); TOTAL PROTEIN 5.1 g/dL (6.4-8.2)
[2018-02-15 07:35] VITALS: BP 119/67
[2018-02-15 11:10] VITALS: BP 112/50
[2018-02-15 15:15] VITALS: BP 114/64; BP 154/100
[2018-02-15 20:01] VITALS: BP 110/58
[2018-02-16 04:11] VITALS: BP 109/63
[2018-02-16 11:13] VITALS: BP 101/55
[2018-02-16 15:45] VITALS: BP 115/61
[2018-02-16 19:30] VITALS: BP 112/60
[2018-02-17 04:17] VITALS: BP 127/68
[2018-02-17 07:20] VITALS: BP 152/66
[2018-02-17 10:01] LABS: BE(vivo) 2.9 mmol/L (-2 to +3); HCO3 25.9 mmol/L (22.0-26.0); PCO2 34.3 mmHg (35.0-45.0); PO2 79.2 mmHg (80.0-100.0); pH 7.496 (7.360-7.450); sO2 96.6 % (92.0-98.0)
[2018-02-17 10:35] LABS: URINE BILIRUBIN NEGATIVE (Negative); URINE BLOOD NEGATIVE (Negative); URINE CLARITY CLEAR; URINE COLOR YELLOW; URINE GLUCOSE-RANDOM* NEGATIVE (Negative); URINE KETONES NEGATIVE (Negative); URINE LEUKOCYTES-REFLEX NEGATIVE (Negative); URINE NITRITE-REFLEX NEGATIVE (Negative); URINE PROTEIN (DIPSTICK) NEGATIVE (Negative); URINE SPECIFIC GRAVITY <= 1.005 (1.005-1.035); URINE UROBILINOGEN 0.2 E.U./dl (0.2-1.0)
[2018-02-17 11:05] VITALS: BP 125/64
[2018-02-17 11:50] LABS: HEMATOCRIT 35.1 % (42.0-52.0); HEMOGLOBIN 11.7 gm/dL (14.0-18.0); MCHC 33.3 g/dL (28.0-37.0); MCV 84.1 fL (80.0-100.0); PLATELET COUNT 255 thou/uL (150-400); RBC 4.17 mil/uL (4.50-6.00); RDW 14.7 % (10.5-14.5); WBC 7.7 thou/uL (4.0-11.0)
[2018-02-17 12:00] LABS: CALCIUM 8.4 mg/dL (8.5-10.1); CREATININE 0.9 mg/dL (0.7-1.3); POTASSIUM 3.7 mmol/L (3.5-5.1)
[2018-02-17 12:07] LABS: ALBUMIN 2.1 g/dL (3.4-5.0); TOTAL BILIRUBIN 1.1 mg/dL (<0.1-1.0); TOTAL PROTEIN 5.7 g/dL (6.4-8.2)
[2018-02-17 12:31] LABS: ABSOLUTE NEUTROPHILS 5.6 thou/uL (1.4-8.2); PLATELET ESTIMATE NORMAL
[2018-02-17 15:30] VITALS: BP 109/54
[2018-02-17 19:14] VITALS: BP 113/64
[2018-02-18 06:20] VITALS: BP 113/67
[2018-02-18 07:36] VITALS: BP 107/59
[2018-02-18 11:29] VITALS: BP 94/53
[2018-02-18 15:34] VITALS: BP 92/48
[2018-02-18 16:58] LABS: HEMATOCRIT 35.2 % (42.0-52.0); HEMOGLOBIN 11.6 gm/dL (14.0-18.0); MCH 27.9 pg (26.0-34.0); MCHC 33.1 g/dL (28.0-37.0); MCV 84.5 fL (80.0-100.0); PLATELET COUNT 287 thou/uL (150-400); RBC 4.17 mil/uL (4.50-6.00); RDW 15.3 % (10.5-14.5); WBC 8.4 thou/uL (4.0-11.0)
[2018-02-18 17:07] LABS: CALCIUM 8.6 mg/dL (8.5-10.1); POTASSIUM 3.6 mmol/L (3.5-5.1)
[2018-02-18 17:50] LABS: ABSOLUTE NEUTROPHILS 5.9 thou/uL (1.4-8.2); ANISOCYTOSIS 1+
[2018-02-18 17:51] LABS: LARGE PLATELETS FEW
[2018-02-19 04:42] VITALS: BP 118/71
[2018-02-19 08:04] VITALS: BP 111/57
[2018-02-19 11:18] VITALS: BP 134/67
[2018-02-19 19:20] VITALS: BP 102/45
[2018-02-19] MEDS ORDERED: CIPRO500 MG PO (21:40)
[2018-02-19] MEDS ORDERED: METRONIDAZOLE500 M4 PO (21:41)
[2018-02-19] MEDS ORDERED: FAMCICLOVIR250 MG PO (21:41)
[2018-02-19] MEDS ORDERED: LEVALBUTER0.63 MG/3 INH (21:42)
[2018-02-19] MEDS ORDERED: ENOXAPARIN40 MG/0.1 SUBQ (21:42)
[2018-02-19] MEDS ORDERED: METOPROLOL SUCC25 M1 PO (21:43)
[2018-02-19] MEDS ORDERED: FLORANEX GRANU1 EACH PO (21:44)
[2018-02-19] MEDS ORDERED: ACETAMINOPHEN325 M1 PO (21:44)
[2018-02-19] MEDS ORDERED: ZOFRAN 4 MG ORAL4 MG DISSOLVE (21:45)
[2018-02-19] MEDS ORDERED: PREDNISONE 10 M10 MG PO (21:46)
[2018-02-20 04:51] VITALS: BP 121/66
[2018-02-20 08:11] VITALS: BP 99/57
[2018-02-20 12:10] VITALS: BP 96/52
[2018-02-20 18:06] VITALS: BP 82/54
[2018-02-20 19:44] VITALS: BP 102/58
[2018-02-21 04:28] LABS: HEMATOCRIT 34.3 % (42.0-52.0); HEMOGLOBIN 11.4 gm/dL (14.0-18.0); MCHC 33.3 g/dL (28.0-37.0); MCV 84.2 fL (80.0-100.0); PLATELET COUNT 322 thou/uL (150-400); RBC 4.07 mil/uL (4.50-6.00); RDW 15.2 % (10.5-14.5); WBC 10.2 thou/uL (4.0-11.0)
[2018-02-21 04:32] LABS: CALCIUM 8.6 mg/dL (8.5-10.1); CREATININE 1.2 mg/dL (0.7-1.3); MAGNESIUM 1.6 mg/dL (1.8-2.4); POTASSIUM 3.1 mmol/L (3.5-5.1)
[2018-02-21 05:43] LABS: ABSOLUTE NEUTROPHILS 6.6 thou/uL (1.4-8.2); PLATELET ESTIMATE NORMAL
[2018-02-21 06:02] VITALS: BP 100/59
[2018-02-21 09:05] VITALS: BP 107/51
[2018-02-21 09:23] VITALS: BP 107/51
== END 2018-02-21 16:00 | disposition short-term general hospital (02) | DRG 853 ==
LOC: 4W 15:11 → ICU 15:37 → 4W 15:37 → 2N 15:37 → ICU 02-08 14:55 → 2N 02-10 17:03
PROVIDERS: Internal Medicine; Internal Medicine Pulmonary Disease; Surgery
PROC: 0D1N0Z4 Bypass Sigmoid Colon to Cutaneous, Open Approach (ICD-10-PCS; principal; 2018-02-08)
PROC: 0DBN0ZZ Excision of Sigmoid Colon, Open Approach (ICD-10-PCS; principal; 2018-02-08)
PROC: 5A1935Z Respiratory Ventilation, Less than 24 Consecutive Hours (ICD-10-PCS; principal; 2018-02-08)
PROC: 0BH17EZ Insertion of Endotracheal Airway into Trachea, Via Natural or Artificial Opening (ICD-10-PCS; principal; 2018-02-08)
DX: A41.9 Sepsis, unspecified organism (principal); J96.01 Acute respiratory failure with hypoxia; J69.0 Pneumonitis due to inhalation of food and vomit; E43 Unspecified severe protein-calorie malnutrition; R65.21 Severe sepsis with septic shock; K57.20 Diverticulitis of large intestine with perforation and abscess without bleeding; K56.609 Unspecified intestinal obstruction, unspecified as to partial versus complete obstruction; I38 Endocarditis, valve unspecified; E27.40 Unspecified adrenocortical insufficiency; I47.1 Supraventricular tachycardia; M19.90 Unspecified osteoarthritis, unspecified site; E03.9 Hypothyroidism, unspecified; M35.3 Polymyalgia rheumatica; K21.9 Gastro-esophageal reflux disease without esophagitis; E80.4 Gilbert syndrome; R13.13 Dysphagia, pharyngeal phase; E86.0 Dehydration; I35.0 Nonrheumatic aortic (valve) stenosis; N18.9 Chronic kidney disease, unspecified; I48.91 Unspecified atrial fibrillation; I95.9 Hypotension, unspecified; E87.6 Hypokalemia; Z87.891 Personal history of nicotine dependence; Z82.61 Family history of arthritis; Z68.25 Body mass index [BMI] 25.0-25.9, adult; Z79.52 Long term (current) use of systemic steroids
CPT/HCPCS: 10047; 10078; 10081; 10204; 50093; 50101; 50290; 50386; 50417; 50455; 51390; 56524; 56525; 56526; 56530; 57103; 62110; 62900

== ENCOUNTER 2018-02-20 15:04 | Inpatient (IN) | payer OTHER ==
[~2018-02-20] VITALS: Ht 167.6 cm; Wt 66.2 kg
--- NOTE | ~2018-02-20 | H ---
[facility] [place] [address] HISTORY AND PHYSICAL Name: CHASITY BRYANT Room #: 511-P ADM IN .R.#: [id number] Admission: 02/21/18 Attend Phys: Fernando North MD Discharge: Date of : 29 Report #: [id number] THIS REPORT FOR: //name// CC: Fernando Birch DATE OF SERVICE: 02/22/2018 DICTATED BY: Dr. Praveen Trimble dictating for Dr. Fernando North, who he is covering for. CHIEF COMPLAINT: Mobility and self-care deficits due to weakness. REFERRING PHYSICIAN: Dr. Teja Birch. HISTORY OF PRESENT ILLNESS: The patient is a pleasant 87-year-old right-hand dominant male who was admitted to [facility] on 02/07/2018 with abdominal pain, nausea, chills, sepsis and peritonitis, subacute onset. He underwent an exploratory laparotomy with colectomy and colostomy placement secondary to acute diverticulitis. He was also found to have aspiration pneumonia. He was placed on IV antibiotics and had an n.p.o. status, which has been upgraded. A QUOC drain to the right lower quadrant was placed and a Cabello catheter was placed, which is now discontinued. He became quite weak during this hospitalization. He has been hospitalized for over 2 weeks at this point. He has developed a great deal of weakness in his arms and legs and due to a decline in his overall function and ability to perform activities of daily living, he is now being admitted to the Rehabilitation Unit for comprehensive therapies. Note, I am covering for Dr. Fernando North today and therefore, completing this history and physical for him. This history and physical was previously dictated, but I do not believe it was captured correctly by the dictation system and therefore, I am dictating it again. PAST MEDICAL HISTORY: As above, also aortic stenosis, hypothyroidism, polymyalgia rheumatica, gastroesophageal reflux disease, Guillain-Victorville syndrome and chronic steroid use. PAST SURGICAL HISTORY: Cervical disk surgery, hernia repair and tympanoplasty tube placement. FAMILY HISTORY: He denies any significant family history that is pertinent to his current condition. SOCIAL HISTORY: Smoking, he quit greater than 1 year ago. Alcohol use, [facility] [address] [place] [address] HISTORY AND PHYSICAL Name: EDITHCHASITY GRIGGS Room #: 511-P [facility] IN [facility]#: [id number] Admission: 02/21/18 Attend Phys: Fernando North MD Discharge: Date of : 29 Report #: [id number] occasional. Drug use, none. SOCIAL SITUATION: The patient lives in a house with 2 steps to enter. All of his living needs are on one level. He does have a basement with 14 stairs that he was utilizing before he became ill. He did not use an assistive device. He was able to drive. He lives with his . REVIEW OF SYSTEMS: He reports weakness. He denies chest pain, shortness of breath, fevers or chills. He does admit to feelings of sadness at times. Otherwise, the remainder of a 14-point review is negative, except for what is stated above. PHYSICAL EXAMINATION: GENERAL: No acute distress. Well developed, well nourished. VITAL SIGNS: Afebrile. CARDIOVASCULAR: Pulses are 2+ and regular. LUNGS: Aerating well. ABDOMEN: Soft, nontender and nondistended. He has a colostomy in place; it is putting out stool. EXTREMITIES: Calves are nontender. Homans' sign is negative. LYMPHATICS: No cervical adenopathy. MUSCULOSKELETAL: Functionally, he has good strength in the distal extremities. He can lift his legs off of the bed with 3/5 strength and he can keep his arms extended with 3/5 strength. Proximal strength is graded at 3+/5 proximally in the upper and lower extremities. No foot drop identified. Negative Homans' sign. He requires assistance to stand and ambulate with a front-wheeled walker. NEUROLOGIC AND PSYCHIATRIC: Coordination is fair. Muscle stretch reflexes 1/4 and symmetric. Sensation intact. He is alert, oriented, pleasant and cooperative with the exam. He is very hard of hearing and wears hearing aids. IMPRESSION: Mobility and self-care deficits in an 87-year-old right-hand dominant male secondary to: 1. 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 2. Cardiopulmonary debilitation. 3. Medical complexity with generalized debilitation. 4. Aspiration pneumonia, improving. 5. Peritonitis, status post exploratory laparotomy with colectomy and colostomy secondary to acute diverticulitis. 6. Hypothyroidism. 7. Oral herpes simplex virus. 8. Dysphagia. 9. Vdbintlp-qr-iuavok aortic stenosis. 10. Polymyalgia rheumatica, requiring chronic steroids. 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 PLAN: [address] [address] HISTORY AND PHYSICAL Name: CHASITY BRYANT Room #: 511-P [facility] IN M.R.#: [id number] Admission: 02/21/18 Attend Phys: Fernando North MD Discharge: Date of : 29 Report #: [id number] 1. Admit to the rehabilitation unit for comprehensive therapies. 2. Please see the plan of care, post-admission physician evaluation and admission orders for full details of his rehabilitation care plan. 3. Dr. North will be back to the office on 02/24/2018 to resume care. 4. Develop a rehabilitation program with his therapist. POST-ADMISSION PHYSICIAN EVALUATION: The post-admission physician evaluation has been completed. The preadmission screen information has been reviewed in its entirety. He will benefit from an inpatient rehabilitation program which will include physical therapy, occupational therapy and speech therapy in an effort to improve his overall function. Inpatient rehabilitation care is considered reasonable and necessary. He is quite weak from his debilitation and prolonged hospitalization and needs comprehensive therapies in order to improve his mobility and activities of daily living. He requires active and ongoing therapeutic intervention with physical therapy, occupational therapy and speech therapy. Physical therapy will address his mobility and help to improve his strength, occupational therapy will address his ability to perform activities of daily living and speech therapy will address his swallowing deficits. He requires intensive rehabilitation and has the ability to tolerate 3 hours of therapy a day at least 5 days per week. This will consist of at least 15 hours of intensive rehabilitation within a 7-day consecutive period. The preadmission screen has been reviewed and there are no changes. He is reasonably expected to participate in and benefit significantly from the intensive rehabilitation program. Neurologic-based therapies will be needed based on his condition. These can be provided by the specifically trained spot-by therapists, who are specifically trained in this realm of rehabilitation. Physician supervision is needed due to his condition. A Physical Medicine and Rehabilitation physician will need to follow him closely due to the nature of his illness and the medical comorbidities that have been mentioned above. He requires an intensive and coordinated interdisciplinary approach to providing rehabilitation and this can be provided in our rehabilitation program. INDIVIDUALIZED OVERALL PLAN OF CARE: The preadmission screen has been reviewed. The post-admission physician evaluation information has been overseen as well. The estimated length of stay is approximately 7-10 days and his medical [facility] [address] [place] [address] HISTORY AND PHYSICAL Name: CHASITY BRYANT Room #: 511-P ADM IN [facility].#: [id number] Admission: 02/21/18 Attend Phys: Fernando North MD Discharge: Date of : 29 Report #: [id number] prognosis is good. Anticipated therapeutic interventions have been outlined above, which include physical, occupational and speech therapy. He will have rehabilitation nursing which will also be very important for him. Consultations have been made to Internal Medicine and his surgeons. He is expected to have 3 hours of therapy a day of intensity and he will have therapy at least 5 days per week. The duration of his rehabilitation course will likely be 7-10 days. <ELECTRONICALLY SIGNED> By: Praveen Trimble DO 02/23/18 1208 0949 1035 Praveen Trimble DO /nt
--- NOTE | ~2018-02-20 | H ---
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 HISTORY OF PRESENT ILLNESS: The patient is a pleasant 87-year-old right-hand dominant male who was admitted to [facility] on 02/07/2018 with abdominal pain, nausea, chills of acute onset. He was diagnosed with sepsis and peritonitis and underwent an exploratory laparotomy with colectomy and colostomy placement secondary to acute diverticulitis. He was also found to have aspiration pneumonia. He was treated with IV antibiotics and was made n.p.o. He had a QUOC drain placed in the right lower quadrant and had a Cabello catheter in place, which has now been discontinued. Due to a decline in his overall function and the need for rehabilitation management of his complex medical condition, he was found to be an appropriate candidate for inpatient rehabilitation. He is now being admitted to the Rehabilitation Unit for comprehensive therapies. SOCIAL AND FUNCTIONAL HISTORY: Prior to admission, he was able to walk independently. He was independent with activities of daily living. He was driving. He and his live in their own home and there are no stairs for him to climb. ALLERGIES: No known drug allergies. MEDICATIONS: Reviewed. I note that he takes levothyroxine for hypothyroidism. Please see the written documentation of this history and physical for full details of his medications and dosages. PAST MEDICAL HISTORY: As above, also aortic stenosis, hypothyroidism, polymyalgia rheumatica, gastroesophageal reflux disease, Gilbert syndrome, chronic steroid use. PAST SURGICAL HISTORY: Cervical disk surgery, hernia repair, tympanoplasty tube placement. FAMILY HISTORY: The patient denies any significant family history that is related to his current condition. [facility] [address] [place] [address] HISTORY AND PHYSICAL Name: CHASITY BRYANT Room #: 511-P [facility] IN ..#: [id number] Admission: 02/21/18 Attend Phys: Fernando Nroth MD Discharge: Date of : 29 Report #: [id number] SOCIAL HISTORY: Smoking: He quit more than a year ago. Alcohol use: He states he drinks alcohol occasionally. REVIEW OF SYSTEMS: As above. Specifically, he complains of weakness. He denies difficulty with chest pain or shortness of breath. He denies bladder issues. He has a colostomy, which is new. Otherwise, remainder of 12-point review is negative except for what was stated above. PHYSICAL EXAMINATION: GENERAL: No acute distress, well developed, well nourished, afebrile. Appears younger than his stated age. CARDIOVASCULAR: Pulses are 2+, regular. LUNGS: Aerating well. ABDOMEN: Soft, nontender, nondistended. EXTREMITIES: Calves are nontender. LYMPHATICS: No cervical adenopathy. MUSCULOSKELETAL: Functionally, he showed 3+/5 strength proximally in the upper and lower extremities. He has 4/5 strength distally in the arms and legs. Tone within normal limits. No muscle atrophy. NEUROLOGIC AND PSYCHIATRIC: Coordination is fair. Muscle stretch reflexes are 1/4 and symmetric. Sensation intact. Alert and oriented, pleasant, cooperative with exam. He is hard of hearing even with his hearing aids and he was able to provide all details to me. IMPRESSION: Mobility and self-care deficits in an 87-year-old right-handed male secondary to: 1. 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 2. Peritonitis, status post exploratory laparotomy and colectomy and colostomy secondary to acute diverticulitis. 3. Aspiration pneumonia, improving. 4. Medical complexity with generalized debility. 5. Oral herpes simplex virus. 6. Dysphagia, oropharyngeal. 7. Moderate to severe aortic stenosis. 8. Polymyalgia rheumatica treated with chronic steroids. 9. Polyarthritis with degenerative joint disease. 10. Hypothyroidism. PLAN: 1. Admit to the rehabilitation unit for comprehensive therapies. 2. Discussed the rehabilitation care plan with him and his therapy team. 3. The patient is in agreement with admission to the rehabilitation unit for comprehensive therapies. 4. I am covering for Dr. Fernando North who will be back in the office on February 24 and will assume care for the patient. [address] [address] HISTORY AND PHYSICAL Name: CHASITY BRYANT Room #: 511-P [facility] IN M.R.#: [id number] Admission: 02/21/18 Attend Phys: Fernando North MD Discharge: Date of : 29 Report #: [id number] POST-ADMISSION PHYSICIAN EVALUATION: A post-admission physician evaluation has been done. The patient has been evaluated for changes since the preadmission screen. There are no changes noted from the preadmission screen in his functional or medical status noted. Please see the history and physical above for full details of his medical condition and current functional status. Inpatient rehabilitation care is considered reasonable and necessary for the patient. This is due to the fact that he has severe neurologic weakness from prolonged hospitalization. This is affecting his ability to stand and ambulate as well as perform his daily activities. He is very weak and will require physical and occupational therapy as well as speech therapy that is based in hospital setting due to his complex medical condition. He needs medical oversight which can only be provided in the hospital setting and will require a physician who is trained in Physical Medicine and Rehabilitation to oversee his care due to the complexity of his condition. The patient is in my view able to tolerate at least 3 hours of therapy a day at least 5 days a week and participate in the program that consist of at least 15 hours of intensive rehabilitative therapy. He is reasonably expected to actively participate in the program and benefit significantly from the intensive rehabilitation therapy program. He has defined goals, which are to achieve a level of functional independence so that he can return home with his to his own home. He has excellent family support and it is anticipated that this plan is very realistic for him. An intensive and coordinated interdisciplinary approach to providing rehabilitation is needed and he will benefit greatly from this type of program. INDIVIDUALIZED OVERALL PLAN OF CARE: The estimated length of stay for the patient is 7-10 days with the goal of returning home to his previous living environment. His medical prognosis is good and will need medical oversight to maintain his stable condition while he is rehabilitating. It is anticipated that physical therapy, occupational therapy and speech therapy will be needed in order to provide his improvement. He will be provided with total of 3 hours of therapy per day for a total of 15 hours per week. This will consist of physical therapy, occupational therapy and speech therapy. His anticipated functional outcome is modified independent with his mobility and activities of daily living. It is anticipated that his swallowing function will improve significantly. [facility] [place] [address] [address] HISTORY AND PHYSICAL Name: CHASITY BRYANT Room #: 511-P [facility] IN ..#: [id number] Admission: 02/21/18 Attend Phys: Fernando North MD Discharge: Date of : 29 Report #: [id number] DISCHARGE DESTINATION: Home with his and likely home health therapies. The expected therapy discipline is to be a combination of physical therapy and occupational therapy as well as speech therapy 3 hours a day, at least 5 days per week. The total duration of the therapy will be likely 7-10 days of this intensive therapy and the goal is for him to return home. <ELECTRONICALLY SIGNED> By: Praveen Trimble DO 02/23/18 1208 [id number] [id number] Praveen Trimble DO /nt
[~2018-02-20 15:04] MED LIST changes: +ACETAMINOPHEN325 M1 PO; +CIPRO500 MG PO; +ENOXAPARIN40 MG/0.1 SUBQ; +FAMCICLOVIR250 MG PO; +FLORANEX GRANU1 EACH PO; +LEVALBUTER0.63 MG/3 INH; +METOPROLOL SUCC25 M1 PO; +METRONIDAZOLE500 M4 PO; +PREDNISONE 10 M10 MG PO; +ZOFRAN 4 MG ORAL4 MG DISSOLVE
[2018-02-21 17:36] VITALS: BP 95/52
[2018-02-21 20:40] VITALS: BP 112/63
[2018-02-22 05:21] LABS: HEMATOCRIT 34.9 % (42.0-52.0); HEMOGLOBIN 11.4 gm/dL (14.0-18.0); MCH 27.4 pg (26.0-34.0); MCHC 32.7 g/dL (28.0-37.0); MCV 83.9 fL (80.0-100.0); RBC 4.16 mil/uL (4.50-6.00); RDW 15.6 % (10.5-14.5); WBC 8.7 thou/uL (4.0-11.0)
[2018-02-22 05:34] LABS: CALCIUM 8.7 mg/dL (8.5-10.1); CREATININE 1.1 mg/dL (0.7-1.3); POTASSIUM 3.6 mmol/L (3.5-5.1)
[2018-02-22 07:25] VITALS: BP 114/77
[2018-02-22 20:00] VITALS: BP 97/51
[2018-02-23 08:00] VITALS: BP 103/56
[2018-02-23 19:53] VITALS: BP 102/61
[2018-02-24 19:30] VITALS: BP 108/81
[2018-02-25 09:13] VITALS: BP 113/56
[2018-02-25] MEDS ORDERED: ZOFRAN 4 MG ORAL4 MG DISSOLVE (18:11)
[2018-02-25] MEDS ORDERED: FLORANEX GRANU1 EACH PO (18:11)
[2018-02-25] MEDS ORDERED: A THRU Z SELEC1 EAC6 PO (18:13)
[2018-02-25] MEDS ORDERED: SYNTHROID25 MC1 PO (18:14)
[2018-02-25] MEDS ORDERED: PREDNISONE 10 M10 MG PO (18:15)
[2018-02-25] MEDS ORDERED: ENOXAPARIN40 MG/0.1 SUBQ (18:17)
[2018-02-25 21:00] VITALS: BP 92/44
[2018-02-26 20:46] VITALS: BP 89/50
[2018-02-27 07:54] VITALS: BP 78/39
[2018-02-27 08:31] VITALS: BP 98/44
[2018-02-27 10:30] VITALS: BP 98/44
[2018-02-27 11:16] VITALS: BP 98/44
[2018-02-27 12:13] VITALS: BP 98/44
== END 2018-02-27 16:43 | disposition home health service (06) | DRG 91 ==
LOC: ENTRNSPT 02-27 15:42 → EDTRNSPTSTS 02-27 15:46
PROVIDERS: Nurse Practitioner Family
DX: G72.81 Critical illness myopathy (principal); J69.0 Pneumonitis due to inhalation of food and vomit; A41.9 Sepsis, unspecified organism; I50.23 Acute on chronic systolic (congestive) heart failure; J96.01 Acute respiratory failure with hypoxia; R65.21 Severe sepsis with septic shock; K57.20 Diverticulitis of large intestine with perforation and abscess without bleeding; K21.9 Gastro-esophageal reflux disease without esophagitis; E80.4 Gilbert syndrome; B00.1 Herpesviral vesicular dermatitis; R53.81 Other malaise; E03.9 Hypothyroidism, unspecified; R13.12 Dysphagia, oropharyngeal phase; I35.0 Nonrheumatic aortic (valve) stenosis; I95.9 Hypotension, unspecified; M35.3 Polymyalgia rheumatica; M19.90 Unspecified osteoarthritis, unspecified site; Z93.3 Colostomy status; Z87.891 Personal history of nicotine dependence; Z79.52 Long term (current) use of systemic steroids; Z86.718 Personal history of other venous thrombosis and embolism
CPT/HCPCS: 10112

== ENCOUNTER → 2018-08-27 | Outpatient (CLI) | payer OTHER ==
[~2018-08-27] MED LIST changes: +A THRU Z SELEC1 EAC6 PO; +ELIQUIS5 MG PO; +LASIX 20 MG TAB20 MG PO; +LOPRESSOR25 PO; +SYNTHROID25 MC1 PO
[2018-08-27 14:49] VITALS: BP 95/48
[2018-08-27 15:25] VITALS: BP 114/51
--- NOTE | 2018-08-27 16:05 | NUR ---
IN FOR 1ST INJECTAFER INFUSION FOR IRON DEFICIENCY ANEMIA. PATIENT STATED SOB WITH EXERTION AND FEELS WEAK. ADMISSION HISTORY AND ASSESSMENT COMPLETED. DENIED PAIN. INFUSED INJECTAFER OVER 30 MINUTES AND TOLERATED WELL WITHOUT INCIDENT. OBSERVED FOR 30 MINUTES POST INFUSION. NO ADVERSE EVENT NOTED. POST BP 114/51. TO RETURN NEXT FRIDAY FOR 2ND INFUSION. AND DTR WITH PATIENT. DISMISSED IN STABLE CONDITION.
== END ==
LOC: OPONC 00:25
DX: D50.9 Iron deficiency anemia, unspecified (principal)
CPT/HCPCS: 95000

== ENCOUNTER → 2018-09-03 | Outpatient (CLI) | payer OTHER ==
[2018-09-03 13:56] VITALS: BP 96/52
[2018-09-03 14:45] VITALS: BP 97/43
[2018-09-03 15:10] VITALS: BP 84/48
--- NOTE | 2018-09-03 15:15 | NUR ---
HERE FOR 2ND AND FINAL DOSE INJECTAFER. REPORTS TOLERATING 1ST DOSE LAST WEEK WITH NO UNTOWARD SIDE EFFECTS. TOLERATED TODAY'S INFUSION WITHOUT INCIDENT, NO S/S REACTION. BP LOW UPON ARRIVAL AND POST INFUSION. PT STATES HE ALWAYS RUNS LOW. PT IS A PHYSICIAN. DISCUSSED WITH PT NEED TO KEEP HYDRATED. STATES HIS SPA COORDINATOR WANTS HIM TO RUN DRY POSSIBLE. NO DIZZINESS NOTED, JUST FATIGUE AND WEAKNESS. PT DISMISSED IN STABLE CONDITION POST INFUSION.
== END ==
LOC: OPONC 05:17
DX: D50.9 Iron deficiency anemia, unspecified (principal)
CPT/HCPCS: 95000

== ENCOUNTER 2018-09-24 11:45 | Inpatient (IN) | payer OTHER ==
[~2018-09-24] VITALS: Ht 170.2 cm; Wt 68.5 kg
--- NOTE | ~2018-09-24 | HC ---
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 He had severe mid back pain. He was admitted to [facility] and noted to have an acute compression fracture. He was seen by Interventional Radiology who noted that this was actually an acute L1 compression fracture. He underwent kyphoplasty on 09/28/2018. He notes the symptoms are improved at rest, but he still has significant pain with movement. We are seeing him in rehabilitation medicine consultation. PAST MEDICAL HISTORY: Includes prior [address] [place] [address] inpatient rehabilitation stay back in 02/2018 with a history of critical illness myopathy at that time for which he underwent an exploratory laparotomy with colectomy. He had a colostomy secondary to acute diverticulitis complicated by aspiration pneumonia. His prior history also includes severe aortic stenosis, GERD, polymyalgia rheumatica. He is on chronic anticoagulation, history of Clostridium difficile colitis. MEDICATIONS: Please see the full medication listing. SOCIAL HISTORY: Lives in a house with his , 2 steps in and was independent in the community, driving to the post office, etc. REVIEW OF SYSTEMS: No current complaints of chest pain, shortness of breath, abdominal discomfort. He has the back pain. He is a little groggy because he is just recently post procedure. PHYSICAL EXAMINATION: GENERAL: Pleasant 88-year-old male in no obvious distress. VITAL SIGNS: Last recorded temperature 36.6, pulse 85, respirations 18, blood pressure 100/59. NEUROLOGIC: The patient is alert, follows basic commands. Again is a little bit groggy. He does have the ostomy upon examination of his abdomen. Gentle upper extremity range of motion. Appeared to be decreased at end range with strength probably a grade 4-/5. In his lower extremities, no focal calf swelling. Strength is grade 3+ to 4-/5. He did some log rolling with physical therapy post procedure was sit to stand, mod assist in assisted 3 minutes. OT is to evaluate. [facility] 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 L1 compression fracture, status post kyphoplasty, 09/28/2018. 2. Diverticulitis, status post sigmoidectomy with colostomy. 3. Severe aortic stenosis. 4. Paroxysmal atrial fibrillation with a history of left bundle branch block on chronic anticoagulation. 5. History of gastroesophageal reflux disease. 6. History of polymyalgia rheumatica. PLAN: We will need to see how he does in therapies. The patient and daughter would like for him to return back for a short acute in-hospital inpatient [facility] rehabilitation stay. Insurance issues will need to be checked as he further medically stabilizes. We will be glad to follow along with you regarding his rehab therapy needs. ��������������������������������������������� ���������������������������������������� By: ��������������������������������������������� 1445 0120 Fernando North MD /PMT
[2018-09-24 11:46] VITALS: BP 87/46
[2018-09-24 13:09] LABS: HEMATOCRIT 37.2 % (42.0-52.0); HEMOGLOBIN 12.1 gm/dL (14.0-18.0); MCHC 32.5 g/dL (28.0-37.0); MCV 86.1 fL (80.0-100.0); PLATELET COUNT 256 thou/uL (150-400); RBC 4.32 mil/uL (4.50-6.00); RDW 18.2 % (10.5-14.5); WBC 9.2 thou/uL (4.0-11.0)
[2018-09-24 13:11] LABS: CREATININE 1.1 mg/dL (0.7-1.3); POTASSIUM 3.7 mmol/L (3.5-5.1)
[2018-09-24 13:24] LABS: CALCIUM 8.8 mg/dL (8.5-10.1)
[2018-09-24 13:37] LABS: ABSOLUTE NEUTROPHILS 5.7 thou/uL (1.4-8.2); PLATELET ESTIMATE NORMAL
[2018-09-24 16:20] VITALS: BP 103/50
[2018-09-24 16:35] VITALS: BP 102/54
[2018-09-24 17:27] VITALS: BP 102/67
[2018-09-24] MEDS ORDERED: FLOMAX0.4 MG PO (17:31)
[2018-09-24] MEDS ORDERED: VITAMIN B COMP1 EACH PO (17:33)
--- NOTE | 2018-09-24 18:38 | NUR ---
PT ARRIVED TO FLOOR FROM ER PER CART AT 1700.ADMISSION HX COMPLETED.PT AND HIS FAMILY WERE WORRIED ABOUT COLOSTOMY BAG REPLACEMENT.RN REASSURED THEM THAT IT CAN BE DONE WITHOUT DIFFICULTY.DR SNYDER NOTIFIED.ORDER NOTED.FAMILY NOTIFIED. WILL CONTINUE TO MONITOR.
[2018-09-24 20:54] VITALS: BP 101/48
--- NOTE | 2018-09-25 00:46 | NUR ---
ASSESSMENT COMPLETED WITH HELP OF PT'S .PT REQUESTED FOR HIS ELIQUIS AND MORPHINE FOR BREAK THROUGH PAIN.DR SNYDER WAS CALLED VIA ANSWERING SERVICE FOUR DIFFERENT TIMES @2113,2207,2304 AND 2318.WAITING FOR THE CALL BACK.FAMILY IN THE ROOM.DR GAINES HERE TO VISIT.PT C/O PAIN TWO HOURS AFTER PO MED WAS ADMINISTERED,PT WAS NOTIFIED THAT IT WAS NOT YET TIME FOR ANOTHER DOSE.PT'S TOLD THIS NURSE TO COME AND LET HER KNOW WHEN IT WAS TIME FOR THE NEXT DOSE.A LITTLE BEFORE MIDNIGHT,THIS NURSE WENT INTO PT'S ROOM TO KNOW IF PT STILL NEEDED THE MED PER 'S REQUEST.PT WAS ASLEEP AT THE TIME BUT THE REQUESTED THIS NURSE TO BRING IN THE MED.ON GETTING TO THE ROOM,PT'S STATED THAT SHE HAS ALREADY TOLD HIM ABOUT THE MEDICATION.MED WAS ADMINISTERED ORDERED BUT PT WAS NOT HAPPY THAT HE WAS WOKEN UP.THIS NURSE TOLD PT THAT HIS MADE THE REQUEST.CALL LIGHT WITHIN REACH.
[2018-09-25 05:10] VITALS: BP 115/55
--- NOTE | 2018-09-25 07:31 | NUR ---
ostomy care; daughter called this woc nurse last marcella stating pt admitted to [facility] and did not bring supplies to hosp, requested woc nurse to come this am and also change appliance, pt able to empty pouch but assists w/ pouch changes, new pouch applied coco 2 piece appliance w/ adapt ring, peristomal skin intact, no stool this am, supplies placed at bs, spouse at bs, reassurance given on ostomy care, due to pain meds instructed pt to watch bowel function for constipation, may need more fiber in diet, stool softners, etc . will follown prn
[2018-09-25 08:00] VITALS: BP 107/48; BP 126/73
--- NOTE | 2018-09-25 10:29 | NUR ---
INITIAL ASSESSMENT: Pt evaluated for d/c planning needs. Reviewed chart and spoke with nurse, pt, spouse and daughter. Pt is retired physician. Pt is alert and oriented. Pt lives in house with spouse. Family is supportive and involved. Pt remains active in the community and is still driving. Pt was issued walker in February 2018 prior to his d/c from hospital. Pt had [facility] on d/c and then started going to outpatient physical therapy at [facility]. Pt hopes to return home on d/c from hospital. Pt would like hospital bed for home use. Contacted [employer] and pt does not have qualifying diagnosis for insurance to pay for hospital bed. Will remain available to assist as needed.
[2018-09-25 16:38] VITALS: BP 110/74
--- NOTE | 2018-09-25 18:45 | NUR ---
Assumed pt care at 7am.Pt in bed very anxious and wanted to know if he will be going for kyphoplasty today.Rn informed the pt and family that Dr Caballero will decide after seen pt today.Later this am Samreen guerra and Dr Birch here and order noted.Pt left for mri and returned to floor after one hour.Medicated pt with norco and morphine ivp for back pain with relief.Heating pad applied to back per pt request with relief.Family at bs at all times today assisting with care.Will continue to monitor.
[2018-09-25 22:25] VITALS: BP 111/61
--- NOTE | 2018-09-26 02:43 | NUR ---
PATIENT ALERT AND ORIENTED X4. AND DAUGHTER AT BEDSIDE IN EARLY EVENING AND STAYED OVERNIGHT. PATIENT MEDICATED X3 FOR BACK PAIN AT TIME OF NOTE. ABLE TO SIT ON THE SIDE OF THE BED WITH ONE STRONG ASSIST TO TAKE HIS MEDICATION WITH APPLESAUCE. HEATING PAD IN PLACE WHICH GIVES PATIENT SOME RELIEF. COLOSTOMY WITH BROWN LIQUID FECES. PATIENT MAY HAVE SURGERY ON FRIDAY, HOLDING ELIQUIS. WILL MONITOR.
--- NOTE | 2018-09-26 06:40 | NUR ---
AT BEDSIDE ASKED THIS NURSE TO HOLD AM MEDICATION FOR THE AM NURSE TO GIVE PATIENT WAS ASLEEP. WILL PASS ON TO DAY SHIFT.
--- NOTE | 2018-09-26 07:34 | H ---
[facility] [place] [address] HISTORY AND PHYSICAL Name: CHASITY BRYANT Room #: 429-P [facility] IN ..#: [id number] Admission: 09/24/18 ������������������ Attend Phys: Albert Krause Discharge: ������������������ Date of : 29 Report #: [id number] THIS REPORT FOR: //name// CC: El Birch DATE OF SERVICE: 09/24/2018 CHIEF COMPLAINT: Back pain. 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 He gave a history of during his normal activity; he was reaching to open a window in his house when he felt a sharp pop and pain in the middle of his back. It was so severe that he had to sit down and really could not move and had to call his for help. He tried taking a few doses of hydrocodone that he had at home without improvement and he was having difficulty getting around. He was brought to the Emergency Room where a CT has revealed an acute T12 vertebral compression fracture. PAST MEDICAL HISTORY: Diverticulitis with a history of partial colon resection in 02/2018, he also has aortic stenosis, chronic anticoagulation, history of C. diff colitis in 2009. He reports a history of enlarged prostate with elevated PSA, rising from 4-14 over the last 4 years. He is under watchful waiting with Urology and no biopsy has been performed to date. PAST SURGICAL HISTORY: He has had a cervical neck fusion. FAMILY HISTORY: Noncontributory. SOCIAL HISTORY: As mentioned, he is a retired surgeon. No chronic alcohol or tobacco use. ALLERGIES: None. MEDICATIONS: Lasix, Eliquis, metoprolol, prednisone, Levoxyl. REVIEW OF SYSTEMS: Other than back pain, denies headache, chest pain, shortness of breath, abdominal pain, nausea, vomiting, diarrhea, constipation, dysuria or syncope. OBJECTIVE: VITAL SIGNS: Temperature 36.3, pulse 61, respirations 18, blood pressure 107/48, O2 sat 93% on room air. GENERAL: He is awake, alert, in no distress. LUNGS: Clear. [facility] [address] [place] [address] HISTORY AND PHYSICAL Name: CHASITY BRYANT Room #: 429-P [facility] IN [facility]#: [id number] Admission: 09/24/18 ������������������ Attend Phys: Albert Krause Discharge: ������������������ Date of : 29 Report #: [id number] HEART: Regular. ABDOMEN: Soft, normoactive bowel sounds. EXTREMITIES: No edema. NEUROLOGIC: He has full movement of his lower legs. There is no report of loss of sensation. He has had bowel and bladder continence overnight. LABORATORY DATA: Reviewed, unremarkable. IMAGING: CT of the lumbar spine, T12 vertebral compression fracture. ASSESSMENT: 1. Acute T12 vertebral compression fracture. 2. Intractable back pain. 3. Aortic stenosis. 4. History of elevated PSA of 18 per his report. 5. History of chronic anticoagulation. PLAN: An MRI has been ordered. Dr. Contreras has been consulted to review the MRI and discussed with him the possibility of kyphoplasty, but will need to wait reports from the MRI as there was a mention of small retropulsed bone fragment from the fracture. He does take chronic prednisone, which could contribute the osteoporosis leading to this fracture, but given his age and rising PSA, I am going to ensure there is no mass lesion that precipitated the fracture. ��������������������������������������������� <ELECTRONICALLY SIGNED> ���������������������������������������� By: Fernando Garg MD ��������������������������������������������� 09/26/18 0734 1201 1220 Fernando Garg MD /nt
[2018-09-26 08:31] VITALS: BP 117/59
--- NOTE | 2018-09-26 13:24 | NUR ---
ASSUMED CARE OF PT AT 0700. ASSESSMENT CHARTED. A&O,X4. C/O LOWER BACK PAIN 10/10 AT TIMES, PAIN MEDS GIVEN ORDERED. PT ABLE TO LOG ROLL TO SIT ON SIDE OF BED AND STAND ONLY. PT/OT WILL EVAL AFTER PLANNED KYPHO ON FRIDAY. AND DAUGHTER AT BEDSIDE. PT REPORTS DIFFICULTY SWALLOWING AT BASELINE, NEEDS TO SIT UP 90 DEGREES TO EAT/DRINK/TAKE MEDS. PT REPROTS FEELING DRY, INQUIRING ABOUT IV FLUIDS. PHYSICIAN NOTIFIED. NEW ORDER TO HOLD LASIX MED AND NO IVF AT THIS TIME. PT REPORTS TAKING FLOMAX AT NIGHT, PHYSICIAN NOTIFIED, MED ORDER CHANGED. NEW LIDOCAINE PATCH ORDERS, WILL APPLY ORDERED. VSS. WILL CONTINUE TO MONITOR UNIL EOS.
[2018-09-26 17:05] VITALS: BP 98/56
[2018-09-26 19:55] VITALS: BP 86/50
[2018-09-26 20:45] VITALS: BP 91/55
[2018-09-27 03:45] VITALS: BP 118/62
--- NOTE | 2018-09-27 04:16 | NUR ---
ASSUMED CARE AT 1900, ASSESSMENT COMPLETED. VS COMPLETED, COLOSTOMY EMPTIED, AND ASSISTED PT TO GET INTO BED FROM CHAIR. PT REPORTS VERY HIGH LEVEL PAIN IN MID BACK; WORSE AFTER GETTING UP/DOWN, WHICH PT HAS TO DO FREQUENTLY BECAUSE OF URINARY FREQUENCY. HAVE GIVEN TWO DOSES OF BOTH NORCO AND MORPHINE OVERNIGHT. EDUCATED PT AND ABOUT CALLING TO ASK FOR PAIN MEDS THEY ARE NOT SCHEDULED; BOTH STATED THEIR UNDERSTANDING. PT DENIES NAUSEA OR SOB. TIRES EASILY D/T PAIN, BUT HE DOES MOST OF THE WORK HIMSELF WHEN MOVING AROUND. LOW-GRADE TEMP THIS AM, 99.2 AXILARY, BUT ROOM WAS VERY WARM AND PT HAD BEEN COVERED UP. ONLY URINATING ABOUT 100 ML AT A TIME, DARK YELLOW COLOR. NO OTHER CONCERNS, WILL CONTINUE TO MONITOR.
[2018-09-27 08:08] VITALS: BP 132/66
--- NOTE | 2018-09-27 15:56 | NUR ---
ASSUMED CARE OF PT AT 0700. ASSESSMENT CHARTED. A&O,X4. FAMILY AT BEDSIDE AT ALL TIMES. C/O 10/10 BACK PAIN, PAIN MEDS GIVEN ORDERED TO KEEP PT COMFORTABLE. LOW BP NOTED AT TIMES, WILL MONITOR FREQUENTLY. COLOSTOMY IN PLACE, ONE LARGE SOFT BM TODAY. DYSHAGIA NOTED, MAINTAINING PRECAUTIONS. FALL RISK NOTED. PLAN FOR SURGERY TOMORROW AM. WILL CONTINUE TO MONITOR UNTIL EOS.
[2018-09-27 20:15] VITALS: BP 118/57
[2018-09-28] VITALS (8 sets, daily range): BP systolic 97–113; BP diastolic 51–64
--- NOTE | 2018-09-28 05:23 | NUR ---
PT A&OX4. WAS IN THE CHAIR WHEN I MET HIM. PLEASANT AND APPROPRIATE PT C/O OF PAIN, MEDICATION GIVEN AND PT TRANSFERED TO BED. COLOSTOMY EMPTIED. AT BEDSIDE AT ALL TIMES AND VERY INVOLVED WITH PT CARE. PT/ REQUESTING COLOSTOMY BE CHANGE BEFORE PT PROCEDURE TODAY 09/28. NPO SINCE MIDNIGHT. PT WANTS TO KNOW THE TIME FOR HIS PROCEDURE. CALL LIGHT WITHIN REACH
--- NOTE | 2018-09-28 08:17 | NUR ---
ASSUMED CARE OF PT AT 0700. PT NPO SINCE MIDNIGHT, PREPARING FOR KYPHO TODAY. FAMILY AT BEDSIDE. COLOSTOMY CHANGED PER FAMILY REQUEST BEFORE PROCEDURE. PT LEFT IN STABLE CONDITION AT 0805 VIA CART. WILL WAIT FOR PT RETURN. NO AM MEDS GIVEN.
[2018-09-28 08:51] LABS: PROTIME 10.8 Seconds (9.3-11.4)
[2018-09-28 08:55] LABS: CALCIUM 8.9 mg/dL (8.5-10.1); CREATININE 1.1 mg/dL (0.7-1.3); POTASSIUM 3.6 mmol/L (3.5-5.1)
--- NOTE | 2018-09-28 15:50 | NUR ---
CM FOLLOWED UP WITH PT THIS DAY REGARDING POST ACUTE CARE STAY. PT AND DTR INDICATED THAT THEY WOULD PREFER TO GO TO [facility] OR [facility]. CM INDICATED THAT THEY WOULD ASSESS AND SUBMIT FOR AUTH THROUGH INSURANCE. CM PROVIDED SNF LIST IF IN THE EVENT THAT INSURANCE DOESN'T AUTH ACUTE REAHB. CM TO FOLLOW INDICATED WITH DC PLANNING.
--- NOTE | 2018-09-29 03:49 | NUR ---
RESUMMED CARE FOR PT AT 1900. PT WAS SITTING IN CHAIR. C/O OF BACK PAIN. PAIN MEDS GIVEN. PT TRANSFERED BACK TO BED. PT PUTTING OUT SMALL AMOUNT OF URINE (100-150ML) OF URINE AT A TIME. PT HAS RASH ON BACK WHICH HE SAID THE DOCTOR MENTIONED COULD BE FROM THE HEATING PACK, DECLINED MEDICATED CREAM THAT WAS PRESCRIBED FOR IT. CONT. MONITORING OF PT WITH PAIN MANAGEMENT IN PLACE. DAUGHTER AT BEDSIDE
[2018-09-29 08:00] VITALS: BP 118/62
--- NOTE | 2018-09-29 08:41 | NUR ---
PATIENT SEEN BY DR. MONTENEGRO FOR ACUTE REHAB CONSULT. PATIENT DOES HAVE DEFICITS AND COULD BENEFIT FROM ACUTE REHAB. AUTHORIZATION INITIATED ON 09/28/18.
--- NOTE | 2018-09-29 14:04 | NUR ---
RECEIVED CALL FROM [facility] REGARDING REQUEST FOR AUTHORIZATION FOR ACUTE REHAB. PATIENT HAS BEEN DENIED ACUTE REHAB STAY. PER [facility] "GOALS FOR PATIENT CAN BE ACHEIVED AT A LOWER LEVEL OF CARE/SNF. PEER TO PEER CAN BE PERFORMED. IT MUST BE SCHEDULED BY 3:00PM TOMORROW/09-30-18. TO SCHEDULE CALL . THANK YOU FOR THIS REFERRAL.
[2018-09-29 16:20] VITALS: BP 86/49
--- NOTE | 2018-09-29 17:08 | NUR ---
Pt in bed sound asleep till breakfast time.Family at bs at alltimes assisting with care.Assessment completed.vss.pt required extra care and repositioning. Am meds given as ordered.Pt requested that eliquis should be held till tomorrow.Dr Garg here,order noted.Medicated pt with norco as needed for pain.Pt voided per urinal. at bs.Will continue to monitor.
[2018-09-29 21:32] VITALS: BP 91/53
[2018-09-30 07:41] VITALS: BP 110/67
--- NOTE | 2018-09-30 16:10 | NUR ---
ACUTE HONEY LIQUEFIER WAS TOLD BY CASE MANAGEMENT THAT PATIENT/PATIENT'S FAMILY WOULD LIKE TO TALK ABOUT THE OPTION OF PRIVATE PAY FOR ACUTE REHAB STAY. (PATIENT'S INSURANCE HAS DENIED ACUTE REHAB STAY, BUT WOULD ALLOW SNF STAY.) LIAISON SPOKE WITH MRS. BRYANT AND INFORMED HER THAT DR. MONTENEGRO HAD SEEN DR. BRYANT AND THAT THE PATIENT COULD BE ACCEPTED TO ACUTE REHAB ON PRIVATE PAY BASIS. MRS. BRYANT ASKED "IF THERE WAS A CHANCE THAT FOR THE YEARS OF SERVICE THAT HER HAD PROVIDED TO [facility], WOULD WE CONSIDER ALLOWING DR. BRYNAT TO COME TO REHAB WITHOUT PRIVATE COMPENSATION." MRS. BRYANT SAID THAT IF NOT, THAT SHE WANTED HIM TO STAY AT [facility] AND THAT THEY WOULD PRIVATELY PAY. LIAISON SPOKE WITH ACUTE ACCOUNTING LECTURER AND ALTHOUGH DR. BRYANT'S SERVICE TO [facility] IS VERY APPRICIATED, A NONCOMPLENSATED STAY IN REHAB WOULD NOT BE AN OPTION. PATIENT DOES HAVE OTHER OPTIONS TO RECEIVE REHAB SERVICES PAID FOR BY THE PATIENT'S INSURANCE AT A RESIDENTIAL LEVEL. LIAISON AND CASE MANAGEMENT DISH STACKER WILL SPEAK WITH MRS. BRYANT TOMORROW, ON 10-01 REGARDING OPTIONS.
[2018-09-30 18:09] VITALS: BP 114/70
--- NOTE | 2018-09-30 19:52 | NUR ---
ASSUMED CARE OF PT AT 0700. ASSESSMENT CHARTED. A&O,X4. C/O 8 BACK PAIN, PAIN MEDS GIVEN ORDERED. FAMILY AT BEDSIDE, TEARFUL AND WORRIED ABOUT POC, REASSURANCE GIVEN, PHYSICIAN NOTIFIED OF CONCERNS. MRI AND LEFT KNEE XRAY COMPLETED TODAY, NO ACUTE PROCESS NOTED. NEW BACK BRACE ORDER, BACK BRACE FITTED AND IN PLACE. PT C/O EYE STYE, PHYSICIAN AWARE, NEW PO ABX ORDERS. CONCERNED ABOUT PT HX OF CDIFF, PHYSICIAN NOTIFIED. ABX CHANGED ORDERED. PT CURRENTLY SITTING UP IN CHAIR. FAMILY AWARE OF UPDATES. VSS. SLOWLY PROGRESSING TOWARDS GOALS, NONCOMPLIANT AND FUSSY AT TIMES.
[2018-09-30 21:44] VITALS: BP 103/54
[2018-10-01 06:45] VITALS: BP 101/64
--- NOTE | 2018-10-01 07:25 | NUR ---
PAIN MUCH BETTER CONTROLLED LAST NOC, NO MORPHINE IV GIVEN, BRACE WHEN UP, RISK FOR ASPIRATION, PT IS UPRIGHT EACH TIME MEDS IS GIVEN, REFUSED EYE DROPS LAST NOC, WANTING IT BE STARTED TODAY, TOOK THE ELIQUIS, NO SOB NOTED, FAMILY AT BEDSIDE AND VERY ATTENTIVE, TAKING PILLS WITH APPLESAUCE, PT ALERT/ORIENTED X4, MONITORED.
--- NOTE | 2018-10-01 09:01 | NUR ---
Pt assessed d/t LOS. Here for T12 vertebral compression fracture and s/p L1 kyphoplasty on 09/28. PMH: aortic stenosis, diverticulitis s/p partial colon resection (02/2018). Pt w/ colostomy and wound RN arrived during RD visit. Met with pt, spouse, and daughter. CBW 151#; pt at healthy weight, BMI 23.6 kg/m2. Mainly spoke w/ daughter outside room who reports pt "coming off a lot of pain meds." Pain down "from like a 15 to a 3." Pt was displeased and grumpy about taste of turkey sausage this AM. Pt averaging 57% of meals x 4 days. Daughter denies any nutrition concerns. Family bringing in good, large dinner q night and daughter feels pt's other meals will pick up and delivery driver now that he is past the high pain. Educated on protein sources and supplement options - declined need at this time. Per chart, may transfer to rehab soon. Remains low risk.
--- NOTE | 2018-10-01 09:13 | NUR ---
ostomy care; pouch on x4 days, changed using 2 piece system coco w/ adapt ring under wafer, stoma pink viable budded w/ soft brown stool noted, spouse and daughter at bs, all receptive to education and review of ostomy care, supplies left at bs, will cont to follow prn
[2018-10-01] MEDS ORDERED: NORCO 7.5-3251 EACH PO (09:51)
[2018-10-01] MEDS ORDERED: TIZANIDINE4 MG/1 TA1 PO (09:51)
[2018-10-01] MEDS ORDERED: GARAMYCIN5 ML OPHTHALMIC (09:52)
--- NOTE | 2018-10-01 15:18 | NUR ---
CM VISITED PT, SPOUSE, AND JACKIE CastroN LIAISON THIS AM. IT WAS CONVEYED THAT [facility] COULDN'T TAKE PT UNLESS THEY WERE WILLING TO PAY PRIVATELY. CM AND JACKIE INDICATED THAT SKILLED FACILITIES WOULD BE A COVERED OPTION THROUGH INSURANCE. SPOUSE INDICATED THAT SKILLED WASN'T AN OPTION AND THAT THEY WOULD PAY PRIVATELY. JACKIE INDICATED THAT SOMEONE FROM THE BUSINESS OFFICE WAS TO COME AND SPEAK WITH THEM REGARDING ARRANGEMENTS. THEY VISITED BUT SPOUSE HAD GONE HOME. SHE IS TO VISIT AGAIN LATER THIS AFTERNOON. CM TO FOLLOW UP AND ASSIST AND INDICATED WITH DC PLANNING.
[2018-10-01 16:43] VITALS: BP 96/54
[2018-10-01 16:44] VITALS: BP 96/54
--- NOTE | 2018-10-01 19:00 | NUR ---
ASSUMED CARE OF PT AT 0700. ASSESSMENT CHARTED. A&O,X4. C/O BACK AND KNEE PAIN, PAIN MEDS GIVEN ORDERED. OSTOMY NURSE AT BEDSIDE THIS AM, NEW COLOSTOMY BAG PLACED. FAMILY TEARFUL AND ANXIOUS AT TIMES. FALL PRECAUTIONS IN PLACE. NEW DISCHARGE ORDERS, WAITING TO TRANSFER TO [facility]. VSS.
[2018-10-01 20:25] VITALS: BP 112/61
--- NOTE | 2018-10-02 05:34 | NUR ---
ASSUMED CARE OF PT @1900. PT A&OX4 THIS SHIFT. DTR @BEDSIDE FOR THE NIGHT. C/O BACK PAIN. MEDS GIVEN FOR MANAGEMENT. POC DONE. TAKES MEDS WHOLE WITH APLLE SAUCE. AWAITING TRANSFER TO [facility] TODAY. COLOSTOMY BAG CLEANED WITH SOFT BROWN STOOL NOTED. WILL CONTINUE TO MONITOR TILL EOS
--- NOTE | 2018-10-02 07:16 | NUR ---
EVENTS FROM 10/01/18: DIGITAL FORENSICS INVESTIGATOR AND SENIOR MARKET RESEARCH ANALYST SPOKE WITH MRS. BRYANT AND INFORMED HER THAT A REHAB STAY WITHOUT PAYMENT WAS NOT AN OPTION AND THAT IF SHE WOULD LIKE TO STILL PURSUE ACUTE REHAB SOMEONE FROM THE BUSINESS OFFICE WOULD COME TO VISIT WITH HER LATER IN THE DAY. DIGITAL FORENSICS INVESTIGATOR AND PROBLEM MANAGER WENT TO VISIT WITH THE PATIENT'S IN THE AFTERNOON AND MRS. BRYANT HAD LEFT THE HOSPITAL TO RETURN AROUND 4:30 OR 5:00. PROBLEM MANAGER TOLD PATIENT THAT SHE WOULD RETURN AROUND THAT TIME. AFTER MEETING WITH FAMILY, THE PROBLEM MANAGER CALLED THE DIGITAL FORENSICS INVESTIGATOR AND INFORMED THAT ARRANGEMENTS HAD BEEN MADE AND THAT THE PATIENT COULD BE ADMITTED TO ACUTE REHAB. PLAN FOR ADMISSION THIS DATE, 10/02/18.
[2018-10-02 08:09] VITALS: BP 109/60
--- NOTE | 2018-10-02 15:50 | NUR ---
S/W IN ROOM PT HAD COVERS OVER HEAD. ATTEMPTED TO ANSWER QUESTIONS FOR HER RELATED TO TRANSFER TO REHAB LATER TODAY. PT WILL WANT A HOSPITAL BED WHEN DISCHARGED FROM REHAB. [facility] HAS BEEN ALERTED OF THIS REQUEST BUT WILL NEED DOCUMENTATION FROM THAT BED IS NEEDED IN ORDER TO CHANGE POSITIONS TO ALLEVIATE PAIN IN ORDER TO GET INSURANCE TO COVER BED.
[2018-10-02 16:34] VITALS: BP 81/50
== END 2018-10-02 18:25 | DRG 516 ==
LOC: ER 11:45 → 4E 14:50 → EROBS 14:50 → 4E 16:34
PROVIDERS: Internal Medicine Geriatric Medicine; Nuclear Medicine Nuclear Cardiology; Nurse Practitioner Family; ADMIT Internal Medicine
DX: M48.56XA Collapsed vertebra, not elsewhere classified, lumbar region, initial encounter for fracture (principal); K57.32 Diverticulitis of large intestine without perforation or abscess without bleeding; M19.90 Unspecified osteoarthritis, unspecified site; I35.0 Nonrheumatic aortic (valve) stenosis; I48.0 Paroxysmal atrial fibrillation; K21.9 Gastro-esophageal reflux disease without esophagitis; K57.30 Diverticulosis of large intestine without perforation or abscess without bleeding; E03.9 Hypothyroidism, unspecified; Z79.52 Long term (current) use of systemic steroids; Z87.891 Personal history of nicotine dependence; Z90.49 Acquired absence of other specified parts of digestive tract; Z93.3 Colostomy status; Z79.01 Long term (current) use of anticoagulants; Z79.899 Other long term (current) drug therapy
CPT/HCPCS: 10084; 10183

== ENCOUNTER 2018-10-02 16:06 | Inpatient (IN) | payer OTHER ==
[~2018-10-02] VITALS: Ht 167.6 cm; Wt 68.5 kg
--- NOTE | ~2018-10-02 | H ---
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 He had severe mid back pain. He was admitted to [facility] and was noted to have an acute compression fracture. He was seen by Interventional Radiology who noted that this was actually an acute L1 compression fracture. He underwent kyphoplasty on 09/28/2018. He has had problems with pain control with intermittent IV morphine, but seems to be doing better with transition to p.o. medications. He has been fitted with a Velcro closure bilateral lumbar back brace for gait and transfers. He does have a prior colostomy from prior bowel surgery. He is gradually progressing as far as functional mobility and has now been admitted for acute in-hospital inpatient rehabilitation. PAST MEDICAL HISTORY: Includes a prior [address] [place] [address] inpatient rehabilitation stay back in 02/2018 with a history at that point of critical illness myopathy. He underwent exploratory laparotomy with colectomy. He had a colostomy secondary to acute diverticulitis complicated by aspiration pneumonia. His prior history also includes severe aortic stenosis, GERD, polymyalgia rheumatica. He has been on chronic anticoagulation. He has a history of Clostridium difficile colitis. MEDICATIONS: Please see the full medication listing. SOCIAL HISTORY: Lives in a house with his , 2 steps in, was independent in the community, driving to the post office, etc. REVIEW OF SYSTEMS: No current complaints of chest pain, shortness of breath, abdominal discomfort. He has the back pain, but feels he is gradually starting to do better. Otherwise, no focal extremity pain complaints. PHYSICAL EXAMINATION: GENERAL: An 88-year-old male in no obvious distress. VITAL SIGNS: Last recorded temperature is 98, pulse 63, respirations 17, blood pressure is 81/50. NEUROLOGIC: He is alert, slightly groggy with pain medication, but appears appropriate. Tends to defer some the answers to his . He is pleasant, cooperative. [facility] [address] [place] [address] HISTORY AND PHYSICAL Name: CHASITY RBYANT Joshua Room #: 504-1 [facility]#: [id number] Admission: 10/02/18 ������������������ Attend Phys: Fernando North MD Discharge: ������������������ Date of : 29 Report #: [id number] HEENT: Facies are symmetric. CHEST: Sounded clear to auscultation. CARDIOVASCULAR: Regular rate and rhythm. ABDOMEN: Bowel sounds positive, nontender. Ostomy is in place. GENITOURINARY AND RECTAL: Deferred. EXTREMITIES: Functional range of motion of the upper extremities with gentle testing. Strength is probably a grade 4-/5 to 3+/5. Lower extremities, no focal calf swelling, functional range of motion with strength to grade 3+ to 4-/5. He has been working in therapies and prior to coming up to the rehab meléndez was transferring with min assist and ambulating a short distance min assist with a front-wheeled walker utilizing his back brace. He needs to have the head of the bed raised all the way up in order to try to don the back brace. 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 L1 compression fracture, status post kyphoplasty, 09/28/2018. 2. Functional mobility and ADL deficits. 3. Pain management issues. 4. Prior colostomy, status post sigmoidectomy for diverticulitis. 5. History of severe aortic stenosis. 6. History of paroxysmal atrial fibrillation with left bundle branch block on chronic anticoagulation. 7. History of gastroesophageal reflux disease. 8. History of polymyalgia rheumatica. PLAN: The patient is admitted for acute in-hospital inpatient rehabilitation. From a postadmission physician evaluation perspective, there are no relevant changes since the preadmission screening. Please see the above review of prior and current medical and functional conditions and comorbidities. Please see the patient's previous and current functional status. As far as risk of complications, he has multiple medical comorbidities as noted above. Initial plan of care involves the interdisciplinary acute inpatient rehabilitation program with goal of maximizing his functional independence, so he can hopefully return back to his prior living situation. Measurable functional goals would be for the patient to become modified independent with transfers, mobility, ADLs, so that he can return back to the home setting. Prognosis is reasonably good. Estimated length of stay is starting out at 6 days. We will see how he does. Potential barriers would include decreased function, medical comorbidities, pain. I had a discussion with the patient and his . Discussed gradual progress. He will need arrangements for a hospital bed when he goes home and family assistance likely for donning and doffing the brace as well as activity as he is up and around. We will be working with him gradually on the rehab meléndez to get [facility] [address] [place] [address] HISTORY AND PHYSICAL Name: CHASITY BRYANT Room #: 504-1 ADM IN .R.#: [id number] Admission: 10/02/18 ������������������ Attend Phys: Fernando North MD Discharge: ������������������ Date of : 29 Report #: [id number] him up and more functional with the hopes of transitioning him back into the home setting. We will have Dr. Garg follow regarding medical issues, etc. ��������������������������������������������� ���������������������������������������� By: ��������������������������������������������� [id number] 40 Fernando North MD /nt
--- NOTE | ~2018-10-02 | PLAN ---
[facility] [place] [address] REHAB UNIT PLAN OF CARE Name: CHASITY BRYANT Room #: 504-1 ADM IN M.R.#: [id number] Admission: 10/02/18 ������������������ Attend Phys: Fernando North MD Discharge: ������������������ Date of : 29 Report #: [id number] THIS REPORT FOR: //name// CC: [place]ch DATE OF SERVICE: 10/05/2018 PROGRESS NOTE/OVERALL PLAN OF CARE SUBJECTIVE: The patient is seen back today in followup. He is doing better overall. He slept better last night. He was up with physical therapy, transfers have been contact guard with gait 250 feet contact guard with a front-wheeled walker. The biggest issues with transfers, supine to sit and getting on his back brace. He notes the back brace may be of some assistance, but he really does not think it helps that much. He has been told that he only needs to use it on an as needed basis. Lower body dressing is min assist. ASSESSMENT: 1. L1 compression fracture, status post kyphoplasty, 09/28/2018. 2. Functional mobility and ADL deficits. 3. Pain management issues. 4. Prior colostomy, status post sigmoidectomy for diverticulitis. 5. History of severe aortic stenosis. 6. History of paroxysmal atrial fibrillation with left bundle branch block on chronic anticoagulation. 7. History of gastroesophageal reflux disease. 8. History of polymyalgia rheumatica. PLAN: The overall plan of care is based on the preadmission screen, post-admission physician evaluation and information garnered from therapy assessments. 1. Estimated length of stay is at this point planning through this Friday. 2. Medical prognosis is reasonably good. 3. Anticipated interventions includes the interdisciplinary acute inpatient rehabilitation program. 4. Anticipated functional outcomes would be for the patient to become modified independent with transfers, mobility and ADLs to hopefully return back to the home setting. 5. Discharge destination is back home with his . He does have a closely involved daughter. 6. Expected therapy by discipline includes PT and OT 1-1/2 hours per day each five days a week throughout the duration of the acute inpatient rehabilitation stay. [address] [address] REHAB UNIT PLAN OF CARE Name: CHASITY BRYANT Room #: 504-1 ADM IN [facility].#: [id number] Admission: 10/02/18 ������������������ Attend Phys: Fernando North MD Discharge: ������������������ Date of : 29 Report #: [id number] ADDENDUM: He did refuse some therapy on 10/03/2018 due to fatigue. Also, the biggest issue for him is bed mobility and transitioning in and out of bed. He notes that the hospital bed is very helpful as far as positioning issues. We will ask case management to assist regarding appropriate paperwork for him in this regard. ____. ��������������������������������������������� ���������������������������������������� By: ��������������������������������������������� [id number] Fernando North MD /nt
[~2018-10-02 16:06] MED LIST changes: +FLOMAX0.4 MG PO; +GARAMYCIN5 ML OPHTHALMIC; +NORCO 7.5-3251 EACH PO; +TIZANIDINE4 MG/1 TA1 PO; +VITAMIN B COMP1 EACH PO
--- NOTE | 2018-10-02 18:46 | NUR ---
assumed care of pt at 0700, pt is a/o times four, pt with pain to back and has been getting pain meds as ordered. Pt with family member at bedside. Vss. he has been afibrile. Pt with orders to transfer to [facility], report called and given to accepting floor. pt assisted to the floor.
[2018-10-02 20:10] VITALS: BP 98/42
--- NOTE | 2018-10-03 01:34 | NUR ---
assumed care at approx 1900 evening 10/02. pt sitting out at dining table at change of shift eating and visiting with family at table. pt talkative and enjoying conversation with family until approx 2014. spouse and daughter very attentive to pt assisting with care. daughter staying the night in room with pt. pt took meds with applesauce tolerating well. colostomy intact with daughter stating she had emptied earlier. pt requesting to get meds before 2100 and wanting to go to sleep. pt states he does not like to be interrupted at nighttime and prefers to sleep in am. bed alarm on and call light in reach. will continue to monitor.
[2018-10-03 06:17] LABS: HEMATOCRIT 33.7 % (42.0-52.0); MCH 27.9 pg (26.0-34.0); MCHC 32.6 g/dL (28.0-37.0); MCV 85.5 fL (80.0-100.0); RBC 3.94 mil/uL (4.50-6.00); RDW 17.4 % (10.5-14.5); WBC 5.8 thou/uL (4.0-11.0)
[2018-10-03 06:27] LABS: CALCIUM 8.7 mg/dL (8.5-10.1); CREATININE 0.9 mg/dL (0.7-1.3); POTASSIUM 3.7 mmol/L (3.5-5.1)
[2018-10-03 08:00] VITALS: BP 91/46
--- NOTE | 2018-10-03 11:54 | NUR ---
ASSUME PT CARE AT 0700. REPORTS SLEPT WELL UNTIL HAD BLOOD DRAW AT 0600. ALERT AND ORIENTED X4. DOESN'T LIKE TO BE DISTURBED AT SLEEPING HOUR. HAS BACK PAIN 08/17. PRN TYLENOL GIVEN THIS AM AND PRN HYDROCODONE GIVEN PRIOR PHYSICAL THERAPY. DAUGHTER INFORMED THAT PT WAS ON CREAM FOR RASHES ON HIS BACK AND CREAM FOR PAIN ON HIS LEFT KNEE WHILE HE WAS ON ACUTE FLOOR. CALLED AND VERIFIED WITH PHARMACY. CALLED DR. SNYDER TO RESUME VOLATERENE GEL AND TRIAMCINOLONE. OFFERED SUPPORTIVE CARE, ENCOURAGED PT AND FAMILY TO VOICE THEIR NEEDS. QUESTIONS ANSWERED. COLOSTOMY INTACT. MILD RASHES ON BACK. UP WITH A WALKER, AMBULATORY LIMITED D/T PAIN. FAMILY AT BEDSIDE. CALL LIGHT WITHIN REACH. FALL PRECAUTION IN PLACE. WILL CONTINUE TO MONITOR.
--- NOTE | 2018-10-04 02:05 | NUR ---
assumed care at approx 1900 evening 10/03. pt sitting up in dining room at change of shift eating supper with family. pt up with 1 with back brace on back to his room. pt somewhat irritable before getting into bed wanting to change position and c/o pain. pt also wanted to take his hs meds early and go to sleep early. pt refused to have his vitals taken and stated he did not want to be disturbed in night and sleep with no interruptions. spouse staying with pt sleeping on cot in room. pt given hs meds early with applesauce per request and pt appears to be sleeping soundly with hourly rounding checks. bed alarm on and call light in reach. will continue to monitor.
[2018-10-04 06:10] VITALS: BP 119/54
--- NOTE | 2018-10-04 07:11 | NUR ---
pt requested not to be disturbed in night. pts spouse stayed in room sleeping on cot during night. pt awoke approx 0600 requesting to be repositioned and consented to have vitals taken this am. colostomy also emptied. creams applied early as ordered per pt request.
[2018-10-04 08:59] VITALS: BP 110/43
[2018-10-04 13:30] VITALS: BP 88/46
[2018-10-04 15:42] VITALS: BP 106/64
[2018-10-04 20:10] VITALS: BP 109/54
--- NOTE | 2018-10-04 23:26 | NUR ---
PT ASSESSMENT COMPLETED AND VSS. MEDS GIVEN ORDERED AND WELL TOLERATED. FALL PRECAUTIONS IN PLACE. SUPPORTIVE FAMILY AT BEDSIDE. ASST PT WITH EMPTYING COLOSTOMY. PRN PAIN MEDICATION WORKING WELL. DENIES NEEDS. SLEEPING WELL. WILL CONTINUE TO MONITOR FREQUENTLY. DSG ON LOWER BACK INTACT. WILL CONTINUE TO MONITOR FREQUENTLY.
--- NOTE | 2018-10-05 02:32 | NUR ---
FALL PRECAUTIONS IN PLACE. BED ALARM AND CHAIR ALARMS ON FOR PT SAFETY/TO PREVENT FALLS. PT WANTING TO DO MORE SELF CARE TASKS WITH SUPERVISION. PT EMPTIED HIS OWN COLOSTOMY THIS EVENING WITH ASSISTANCE. SLEEPING. WILL CONTINUE TO MONITOR FREQUENTLY.
[2018-10-05 08:30] VITALS: BP 115/72
[2018-10-05 09:15] VITALS: BP 115/72
--- NOTE | 2018-10-05 12:02 | NUR ---
cm chart review, tried to visit with pt, daughter asked that cm come back later rt wanting to get up out of bed and go to restroom. drt was assist him and he also has a friend her to visit. will cont following as needed for dc needs.
--- NOTE | 2018-10-05 15:14 | NUR ---
ostomy care; pouch on 4 days, requested woc nurse to change, stoma pink viable budded w/ soft brown stool, peristomal skin intact, new pouch coco 2 piece system applied w/ adapt ring under wafer, daughter at bs, good understanding of ostomy care, supplies at bs, will cont to follow prn
--- NOTE | 2018-10-05 15:29 | NUR ---
ASSUMED CARE OF PT AT 0715. PT IS A&OX4 AND VITAL SIGNS ARE STABLE. PT REPORTS PAIN 3-5 IN LOWER LEFT BACK WHICH WAS MANAGED WITH PO PAIN MEDICAITONS. TOLERATES PO MEDICATIONS WHOLE ONE AT A TIME IN APPLESAUCE. BANDAID TO LOWER BACK AT SURGICAL INCISION SITE. COLOSTOMY NURSE VISITIED PT AT APPROXIMATELY 1500. FAMILY AT BEDSIDE. UP WITH ASSISTANCE OF 1 PERSON WITH GAIT BELT AND WALKER. PT PARTICIPATED IN SCHEDULED THERAPIES. FALL PRECAUTIONS IN PLACE AND NURSING WILL CONTINUE TO MONITOR.
[2018-10-05 19:00] VITALS: BP 98/47
--- NOTE | 2018-10-05 23:44 | NUR ---
PT ASSESSMENT COMPLETED AND VSS. MEDS GIVEN ORDERED AND WELL TOLERATED. FALL PRECAUTIONS IN PLACE. PT STATES THAT HE IS GETTING STRONGER. HE WAS ABLE TO STAND WITHOUT HELP. JUST STANDBY FOR SAFETY. PRN PAIN MEDICATION HELPFUL. PT STATES THAT HIS PAIN NUMBER IS LOWER THEN IT HAD BEEN. A FEW DAYS AGO HE STATES THAT HIS PAIN NUMBER WAS A 7 OR 8. NOW IT IS DOWN TO A 5. PT SLEEPING AT THIS TIME. SUPPORTIVE AT BEDSIDE. WILL CONTINUE TO MONITOR FREQUENTLY.
[2018-10-06 07:15] VITALS: BP 123/74
[2018-10-06 07:45] VITALS: BP 100/61
--- NOTE | 2018-10-06 08:22 | NUR ---
chart review, pt has past h/o acute rehab stay. pt lives with and has family support. daughter here often for visit and assist him in and out of bed. pt requiring hospital bed when dc for mobility and frequent reposition. pt issued walker at last dc stay on acute rehab. pt still drives. skilled rehab is not option. [facility]. [facility] in past per chart. will cont following as needed for dc needs.
--- NOTE | 2018-10-06 13:22 | NUR ---
team meeting, recommendation dc 10/09, ( pt,nursing). pt needing hospital bed for reposition. education on adjustable beds vs renting hospital bed.
--- NOTE | 2018-10-06 16:45 | NUR ---
DISCHARGE PLANNING. ANTICIPATED DISCHARGE PER UNIT CM IS 10/09/18. PATIENT TO DISCHARGE TO HOME WITH HOME HEALTH SERVICES. PATIENT REQUESTING HOSPITAL BED FOR HOME USE. CLINICAL INFORMATION FAXED TO [facility], TO VERIFY PATIENT PROVIDER COVERAGE FOR HOSPITAL BED. MEY TO RUN PROVIDER BENEFITS AND NOTIFY CM. UNIT CM AWARE. FOLLOWING TO ASSIST WITH DISCHARGE NEEDS.
[2018-10-06 19:30] VITALS: BP 87/46
--- NOTE | 2018-10-06 20:36 | NUR ---
ASSUMED CARE OF PT AT 0715. PT IS A&OX4 AND VITAL SIGNS ARE STABLE. PT REPORTED PAIN 5/10 WHICH WAS MANAGED WITH PO MEDICAITONS, AND PT PARTICIPATED IN SCHEDULED THERAPIES. FAMILY CONCERNED ABOUT RASHI, PT WORKING WITH PATIENT DUE TO PAST EXPERIENCE, CONCERN BROUGHT TO THE ATTENTION OF PROJECTION ENGINEER. VISIBLY UPSET THROUGHOUT SHIFT AND REQUIRED REASSURANCE ABOUT PT CARE AND STAFF, DISCUSSED CAREPLAN WITH AND PT AND EXPECTATIONS AND STAFF LIMITATIONS. APPEARED TO BE MORE AT EASE FOLLOWING CONVERSATION. PT TOELRATED PO MEDICATION WHOLE IN APPLESAUCE WITH THIN LIQUIDS. TRANSFERS AND AMBULATES WITH 1 PERSON MIN-MOD ASSIST WITH GAIT BELT AND WALKER. FALL PRECAUTIONS IN PLACE AND NURSING WILL CONTINUE TO MONITOR PT.
[2018-10-06 21:09] VITALS: BP 97/55
--- NOTE | 2018-10-07 05:04 | NUR ---
ASSUMED PT CARE AROUND 1900. A&OX4. C/O LOW BACK PAIN. PAIN IMPROVED WITH PAIN MEDICATION. PT SAT UP IN CHAIR AT BEGINNING OF SHIFT. TOLERATED WELL. PT SLEPT MOST OF THE NIGHT. UP W/ ASSIST TO USE URINAL DURING THE NIGHT. PT IS MOTIVATED TO INCREASE ACTIVITY AND IMPROVE STRENGTH IN ORDER TO GO HOME SOON. DTR AT BEDSIDE ALL SHIFT. FALL PRECAUTIONS IN PLACE. PROGRESSING TOWARD POC GOALS. WILL CONTINUE TO MONITOR FURTHER.
[2018-10-07 09:00] VITALS: BP 119/60
--- NOTE | 2018-10-07 10:00 | NUR ---
pt and daughter tom has question on when bed going to be sent to home, is insurance going to cover it, how big is the bed and how much if insurance decided not to cover the hospital bed. Cont with re-education that hospital bed will not be exactly like beds here, has ordered the hospital bed and [facility]aron has already stated they are working with [facility], insurance to get this approved. pt unable to use regular bed rt sig amount of back pain, and frequent reposition that pt require while in bed. active listen and education during visit that cm would update pt and family when hear back from [facility]. pt and family would still like to know dimensions of bed and how much it cost?. information passed on to [facility] and will update pt/family when get information rt hospital bed.
--- NOTE | 2018-10-07 12:01 | NUR ---
ASSUMED CARE AT APPROX 0715. PATIENT A/O X4. C/O LOW BACK PAIN, OCCASIONAL LEFT KNEE PAIN. MEDICATED FOR PAIN AVAILABLE. DR. FERRELL CONTACTED PER PATIENT REQUEST FOR NON-NARCOTIC PAIN MED STRONGER THAN TYLENOL. ORDERS RECEIVED. PATIENT REQUESTED TO TAKE TRAMADOL AFTER PT. PARTICIPATED IN PT SCHEDULED. PARTICPATED IN PART OF OT SESSION THIS AM. OSTOMY APPLIANCE C/D/I, BAG RINSED. 300 ML SOFT BROWN STOOL OUT. VOIDS PER URINAL WITH ASSIST. BP STABLE THIS AM. VSS. FALL PRECAUTIONS IN PLACE. PATIENT'S DAUGHTER AT BEDSIDE. ROUNDED ON HOURLY. WILL CONTINUE TO MONITOR.
[2018-10-07 20:00] VITALS: BP 90/43
--- NOTE | 2018-10-08 02:01 | NUR ---
RECEIVED REPORT FROM OFFGOING DAY NURSE, IN BED WITH @ SIDE. 2100 MEDS GIVEN AND ASSISTANCE GIVEN FOR TOILET NEEDS. TYLENOL GIVEN IN COMPLIANCE WITH ORDERS, VOLTARIN CREAM APPLIED TO BACK AND L KNEE FOR MUSCLE PAIN. BED ALARM SET, CALL LIGHT WITHIN REACH, WILL CONTINUE HOURLY MONITORING FOR PATIENT SAFETY AND NEEDS.
[2018-10-08 06:18] LABS: CALCIUM 8.9 mg/dL (8.5-10.1); CREATININE 0.9 mg/dL (0.7-1.3); POTASSIUM 3.7 mmol/L (3.5-5.1)
--- NOTE | 2018-10-08 08:01 | NUR ---
ostomy care; requested by spouse to change pouch, was on for 4 days, new appliance coco 2 piece system applied w/ adapt ring under wafer, stoma pink viable slightly budded w/ large amt soft brown stool, peristomal skin intact, supplies at bs, will cont to follow prn
[2018-10-08] MEDS ORDERED: LOPRESSOR25 PO (10:12)
[2018-10-08] MEDS ORDERED: VOLTAREN GEL 1100 G1 TOP (10:13)
[2018-10-08 10:35] VITALS: BP 116/66
--- NOTE | 2018-10-08 10:47 | NUR ---
cm visited with pt at bedside rt 2 text message about hospital bed from pt daughter and 2 phone calls from pt about hospital bed size, is full electric like the beds here, what time will it be delivered?/ nayana Lets talk outside he up all night drinking water and using the urinal. provided active listen during visit, re-education on semi electric hospital bed for home ( will raise and lower the head, and feet but the up and down is manual, it does have rails and will have new mattress, approx size is 80x36. $ 12.30 per month)/sharon. "ok thank you what will insurance pay on shower chair with back on it he needs the back part and what time will bed be at the home and what time will he be dc tomorrow?"/nayana. re-education that insurance doesnt cover shower chair or benches, can look at medical supply [employer], [employer], [employer] and [employer]. let her know would check on delivery time, ok and space has to be cleared out for sharon to put bed together. oh yes it is already. "/. per sharon its ready to be sent tomorrow and up to family when, " 1030 will be fine have sharon call to make sure i am home. thank you"/nayana.
[2018-10-08 12:26] VITALS: BP 116/66
--- NOTE | 2018-10-08 14:21 | NUR ---
VARIANCE 30 MINUTES OT. PATIENT REQUESTING TO REST DUE TO FATIGUE AND WAKING UP MULTIPLE TIMES OVER NIGHT. PATIENT REFUSED 2X ALLOWING, OT TO TREAT ON THE 3RD ATTEMPT.
--- NOTE | 2018-10-08 16:20 | NUR ---
ASSUMED CARE AT APPROX 0715. PATIENT A/O X4. [place]. VSS. BP MEDS ADJUSTED PER DR. FERRELL, ORDERS CLARIFIED. ANTICIPATED DC TOMORROW. PATIENT PARTICIPATED IN THERAPY WITH SOME RESISTANCE, THERAPY TIMES ADJUSTED POSSIBLE TO ACCOMODATE PATIENT. PATIENT REPORTED FEELING VERY TIRED/DROWSY, STATED HE DID NOT SLEEP WELL LAST NIGHT AND THINKS HIS TYLENOL DOSE IS MAKING HIM "FOGGY". PHYSICIAN NOTIFIED, PAIN MEDICATION ADJUSTED. PATIENT REQUESTED STAFF TO ROUND LESS OFTEN THAN HOURLY ROUNDS TO ALLOW FOR REST. "JUST LET ME SLEEP" PATIENT UP TO RECLINER AND EOB FOR MEALS. FALL PRECAUTIONS IN PLACE. AT BEDSIDE. VISUAL CHECK Q HOUR. PATIENT RESTING, WILL CONTINUE TO MONITOR. DISCHARGE MED ORDERS COMPLETED TODAY PER DR. FERRELL. PATIENT SCHEDULED TO HAVE THERAPY SESSIONS TOMORROW PRIOR TO DC.
[2018-10-08 20:25] VITALS: BP 109/57
--- NOTE | 2018-10-09 03:34 | NUR ---
Assumed pt care at 1900,pt A/OX4. Up with min assist of 1 GB/RW. C/o mid back LOP 2/10 relieved by 1 Tylenol 325mg. Took all HS meds whole in applesauce without any problems.VSS. Voiding per urinal with mod assist. Colostomy intact bag rinsed after emptying X1 no issues noted. Resting quietly in bed at this time with no distress noted,dtr at the bedside. Fall precautions implemented. Will continue to monitor pt.
[2018-10-09 09:00] VITALS: BP 107/47
--- NOTE | 2018-10-09 10:36 | NUR ---
PATIENT CARE WAS ASSUMED AT 0715.PATEINT IS ALERT AND ORIENTED X4.PATIENT HAS FAMILY AT BEDSIDE AT ALL TIMES.PATIENT HAS PAIN IN PAIN.MEDICATION WAS GIVEN THIS MORNING BY NIGHT NURSE.PATIENT IS SITTING UP IN CHAIR WORKING WITH OT.PATIENT IS ABLE TO MOVE WELL, AND DO THINGS ON HIS OWN,HOWEVER FAMILY DOES A LOT FOR PATIENT.PATIENT HAS NO OTHER COMPLAINS AT THIS TIME.CALL LIGHT,PHONE, AND PERSONAL BELONGINGS ARE WITHIN REACH.
--- NOTE | 2018-10-09 15:49 | NUR ---
PATIENT WAS DISCHARGED TO GO HOME WITH HOME HEALTH.DOCTOR WAS CALLED TWICE FOR MEDICATION SCRIPTS, AND WAS NOT SUCCESSFUL REACH DOCTOR.SCRIPTS WERE CALLED IN BY NURSE ONCE OKAYED BY NURSE COUNTY JUDGE.SCRIPTS WERE CALLED IN TO [facility] ON [address] [place] PHONE #[phone], BY NURSE, PER 'S D/C ORDERS.THIS WAS EXPLAINED TO FAMILY AND PATIENT, NO ONE HAS QUESTIONS AT THIS TIME.NO IV TO TAKE OUT.PATIENT HAS ALL OF HIS BELONGINGS.FAX WAS SENT TO PATIENT'S PCP OF H&P, AND D/C ORDER/SUMMARY.
--- NOTE | 2018-10-12 09:49 | NUR ---
casandra received 3 voice message from mrs ulloa who stated " need a new bed for someone who had back surgery this is not working out. this bed needs to be picked up from [facility] can get different bed"/mrs ulloa. cm called pt and back via phone conversation about what insurance will cover and if they want they can pay out of pocket for something more or [place] [employer] or other furniture store have electric beds as well. provided mrs ulloa with the number for [facility] so that if wanting hospital bed picked up they can zeferino time with [facility] [phone]. cm notified [facility] liaison as well.
== END 2018-10-09 15:35 | disposition home health service (06) | DRG 552 ==
LOC: ENTRNSPT 10-09 15:38 → EDTRNSPTSTS 10-09 15:40
PROVIDERS: Internal Medicine Geriatric Medicine; ADMIT Physical Medicine & Rehabilitation
DX: S32.019A Unspecified fracture of first lumbar vertebra, initial encounter for closed fracture (principal); K21.9 Gastro-esophageal reflux disease without esophagitis; W18.39XA Other fall on same level, initial encounter; I48.0 Paroxysmal atrial fibrillation; I35.0 Nonrheumatic aortic (valve) stenosis; I44.7 Left bundle-branch block, unspecified; Y93.89 Activity, other specified; Z90.49 Acquired absence of other specified parts of digestive tract; Z93.3 Colostomy status; Z79.01 Long term (current) use of anticoagulants; Y92.89 Other specified places as the place of occurrence of the external cause; Y99.8 Other external cause status
CPT/HCPCS: 10112

== ENCOUNTER → 2018-12-17 | Outpatient (CLI) | payer OTHER ==
[~2018-12-17] VITALS: Ht 185.4 cm; Wt 64.4 kg
[~2018-12-17] MED LIST changes: +BACLOFEN 10MG T10 MG PO; +CALCIUM500 MG PO; +MULTIVITAMINS PO; +NOXIFOL-D32500 UNIT PO; +POTASSIUM20 PO; +SYNTHROID50 MCG PO; +TOPROL XL25 MG PO; +TYLENOL WITH CO1 TA1 PO; +TYLENOL325 M1 PO
--- NOTE | ~2018-12-17 | HPC ---
[facility] [place] [address] PAIN MANAGEMENT CONSULTATION Name: CHASITY BRYANT [id number] Admission: 12/17/18 Attend Phys: Darrion Bruno MD Discharge: Date of : 28 Report #: [id number] THIS REPORT FOR: //name// CC: James Bruno DATE OF SERVICE: 12/17/2018 CHIEF COMPLAINT: Severe low back pain. 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 He is now well under long term and at 88 is suffering from degenerative spine disease. He began experiencing severe mid back pain in August or September of this year. X-rays showed that he had suffered a compression fracture at T12 and he underwent a kyphoplasty. It helped, but he continues to have what he describes as a tight feeling to his back, 05/17. This is probably an underestimation based upon his mobility. The pain is constant and he is sleeping in a recliner. He is unable to get into bed. He has difficulty with any weightbearing activities. He is resistant to taking medication. He suffered opioid-related bowel obstruction many years ago and was hospitalized. He has been taking 2 Tylenol a day and a baclofen with mild relief. He has had previous MRI, which shows severe spinal stenosis at L2-L3, L3-L4, and L4-L5. MEDICATIONS: Metoprolol, Eliquis, levothyroxine, prednisone, Lasix, Tylenol, baclofen, Flomax, potassium, calcium, vitamin D, multivitamins, and vitamin B. ALLERGIES: None. PAST MEDICAL HISTORY: Tympanoplasty in 1987, inguinal hernia in 1966, cervical diskectomy and fusion in 1975, which followed a right inguinal hernia surgery. Carpal tunnel surgery in 2007. SOCIAL HISTORY: He has been for 62 years. His candice is with him today and extremely supportive. He is a retired surgeon. He smoked for a few years in the 1950s, but has not smoked since 1955, the year I was born! He enjoys alcoholic beverages very infrequently, perhaps once a month. He has 3 very successful children. REVIEW OF SYSTEMS: Positive for fatigue, weakness, hearing loss. He has shortness of breath and some mild heart failure. He has nocturia and complains [facility] [address] [place] [address] PAIN MANAGEMENT CONSULTATION Name: CHASITY BRYANT Room #: REG CLLuis David#: [id number] Admission: 12/17/18 Attend Phys: Darrion Bruno MD Discharge: Date of : 29 Report #: [id number] of numbness and tingling at times in his legs. PHYSICAL EXAMINATION: GENERAL: He is a pleasant, soft spoken, 88-year-old gentleman. VITAL SIGNS: His blood pressure is 101/52, heart rate 53, respirations 14. He is 6 feet 1 inch, 142 pounds, BMI is 18.7. He moves independently from sitting to standing position and ambulates with very slow, unsteady gait. He is certainly a fall risk and needs a walker. CHEST: His chest is clear. CARDIAC: His cardiac rhythm is regular. 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 Prominence of paravertebral muscles on the right, which are tender. Pain radiates down into the hips bilaterally. Straight leg raising is negative bilaterally in the lower extremities. There is some decreased sensation in the lower extremities. IMPRESSION: Severe low back pain with spinal stenosis. The MRI is quite significant showing a stenosis primarily at L3-L4. RECOMMENDATIONS: 1. Epidural steroid injection. 2. Consider low dose pain medication trial and I have given him Tylenol No. 3. He can even break these in half if the pain is severe and he cannot sleep, it might be helpful for a good night sleep. 3. Physical therapy has been ongoing with minimal improvement. 4. Consider a Hubbard 631 brace. We had a model in our office and he tried it on. Extra-large allows him to cover his colostomy and this seems to be helpful in stabilizing his low back. PLAN: He will go off his Eliquis and come into the clinic for an epidural injection in the future. We can restart his Eliquis following the procedure. His asked excellent questions about risks and benefits. We discussed the risk of epidural hematoma, if he is off Eliquis for the appropriate amount of time, is no higher than that from the general public. It is unlikely that we would see an epidural hematoma, we discussed at some length today as a possibility. Other side effects and risks of the epidural were reviewed as well for this very cautious couple. He was discharged with his prescription for Tylenol No. 3, #20 tablets and I will see him back in the pain clinic for a lumbar epidural injection at the level of his stenosis in the upcoming week. By: [id number] Darrion Bruno MD /nt
[2018-12-17 14:10] VITALS: BP 101/52
--- NOTE | 2018-12-17 14:34 | NUR ---
Pain Clinic Assessment: 1. History of Osteoarthritis: spine History of Rheumatoid Arthritis: Not Applicable 2. Height: 6 ft. 1 in. 185.4 cm. Weight: 142.0 lb. oz. 64.411 kg. Patient's BMI: 18.7 3. Vital Signs: BP: 101/52 Pulse: 53 Resp: 14 Temp: 02 Sat: 100 ECG Mon: 4. Pain Intensity: 3 5. Fall Risk: Dizziness: N Needs help standing or walking: Y Fallen in the last 3 months: N Fall risk comments: 6. Patient on Blood Thinner: eliquis 7. History of Hypertension: Y 8. Opioid Therapy greater than 6 weeks: N Opiate Contract Signed: 9. Risk Assessment Tool Provided: 10. Functional Assessment Tool: 11. Recreational Drug Use: Never Drug Type: Tobacco Use: Former Smoker Tobacco Type: Amount or Packs/day: How Many Years: Alcohol Use: Yes Frequency: Monthly Quant: 1
== END ==
LOC: PAIN 06:58
DX: M48.061 Spinal stenosis, lumbar region without neurogenic claudication (principal); Z79.891 Long term (current) use of opiate analgesic; Z79.899 Other long term (current) drug therapy

== ENCOUNTER → 2019-02-15 | Outpatient (CLI) | payer OTHER ==
[~2019-02-15] VITALS: Ht 167.6 cm; Wt 65.5 kg
[~2019-02-15] MED LIST changes: +HYDROCODON-ACE1 EAC7 PO
--- NOTE | ~2019-02-15 | P ---
[facility] [place] [address] [address] [place] [address] PROCEDURE REPORT Name: CHASITY BRYANT [id number] Admission: 02/15/19 Attend Phys: Darrion Bruno MD Discharge: Date of : 29 Report #: [id number] THIS REPORT FOR: //name// CC: El Bruno DATE OF SERVICE: 02/15/2019 DIAGNOSIS: Severe low back pain with spinal stenosis. PROCEDURE: Lumbar epidural steroid injection L4-L5 under fluoroscopic guidance. INDICATIONS FOR PROCEDURE: The patient was recently seen in the clinic. Please refer to evaluation. He is here today off of Eliquis for 3 days for epidural steroid injection. Pain is in the back with some mild radiating discomfort. Majority of pain is across the lumbosacral segment. DESCRIPTION OF PROCEDURE: After informed consent, he was taken to the fluoroscopic suite, placed prone, skin prepped with ChloraPrep. Skin anesthetized over the L4-L5 interspace. A 20-gauge Tuohy epidural needle advanced in the epidural space with loss of resistance technique. There was no blood or CSF aspirated. A 1 mL of Omnipaque injected. Excellent spread of dye was seen through the epidural space. It was then followed by 3 mL of 0.5% lidocaine mixed with 60 mg of triamcinolone. He tolerated the procedure well and was observed for 45 minutes and discharged from recovery room. Pain was 0 at discharge. Followup visit planned in March 2019. By: [id number] Darrion Bruno MD /laine
[2019-02-15 12:30] VITALS: BP 110/54
--- NOTE | 2019-02-15 12:46 | NUR ---
Pain Clinic Assessment: 1. History of Osteoarthritis: BACK HANDS History of Rheumatoid Arthritis: Not Applicable 2. Height: 5 ft. 6 in. 167.6 cm. Weight: 144.4 lb. oz. 65.499 kg. Patient's BMI: 23.3 3. Vital Signs: BP: 110/54 Pulse: 74 Resp: 16 Temp: 02 Sat: 99 ECG Mon: 4. Pain Intensity: 7 5. Fall Risk: Dizziness: N Needs help standing or walking: Y Fallen in the last 3 months: N Fall risk comments: 6. Patient on Blood Thinner: eliquis 7. History of Hypertension: Y 8. Opioid Therapy greater than 6 weeks: N Opiate Contract Signed: 9. Risk Assessment Tool Provided: LOW RISK 0/3 10. Functional Assessment Tool: 11. Recreational Drug Use: Never Drug Type: Tobacco Use: Former Smoker Tobacco Type: Amount or Packs/day: How Many Years: Alcohol Use: No Frequency: Quant:
== END | disposition home or self-care (01) ==
LOC: PAIN 06:52
DX: M54.5 Low back pain (principal); M48.061 Spinal stenosis, lumbar region without neurogenic claudication; Z79.01 Long term (current) use of anticoagulants; Z87.19 Personal history of other diseases of the digestive system; Z98.890 Other specified postprocedural states; Z79.891 Long term (current) use of opiate analgesic

== ENCOUNTER → 2019-03-15 | Outpatient (CLI) | payer OTHER ==
[~2019-03-15] VITALS: Ht 167.6 cm; Wt 64.1 kg
--- NOTE | ~2019-03-15 | HPC ---
[facility] [place] [address] [place] [address] PAIN MANAGEMENT CONSULTATION Name: CHASITY BRYANT Room #: REG CL João.#: [id number] Admission: 03/15/19 Attend Phys: Darrion Bruno MD Discharge: Date of : 29 Report #: [id number] THIS REPORT FOR: //name// CC: James Bruno DATE OF SERVICE: 03/15/2019 Followup visit for lumbosacral pain with stenosis. The patient returns to pain clinic today for repeat epidural injection. He had significant improvement on the left following his last injection. He now has more pain on the right, radiating in a radicular fashion to the hip. IMPRESSION: Severe low back pain with spinal stenosis, lumbar radiculopathy, L4-L5, worse on the right. PROCEDURE: Lumbar epidural steroid injection L4-L5 under fluoroscopic guidance. After informed consent, he was taken to the fluoroscopic suite, placed prone, skin prepped with ChloraPrep. Skin was anesthetized over the L4-L5 interspace. A 20-gauge Tuohy epidural needle advanced in the epidural space with loss of resistance technique. There was no blood or CSF aspirated. A 1 mL of Omnipaque injected with good epidural spread, most of this to the right. It was then followed by 3 mL of 0.5% lidocaine mixed with 60 mg of triamcinolone. He tolerated the procedure well and was observed for 45 minutes and discharged. Pain score was reduced once again. Following the injection, we will see what the duration of response is following this latest injection. By: [id number] 0028 Darrion Bruno MD /nt
[2019-03-15 13:52] VITALS: BP 99/51
--- NOTE | 2019-03-15 14:10 | NUR ---
Pain Clinic Assessment: 1. History of Osteoarthritis: BACK HANDS History of Rheumatoid Arthritis: Not Applicable 2. Height: 5 ft. 6 in. 167.6 cm. Weight: 141.4 lb. oz. 64.139 kg. Patient's BMI: 22.8 3. Vital Signs: BP: 99/51 Pulse: 90 Resp: 14 Temp: 02 Sat: 100 ECG Mon: 4. Pain Intensity: 7 5. Fall Risk: Dizziness: N Needs help standing or walking: Y Fallen in the last 3 months: N Fall risk comments: 6. Patient on Blood Thinner: eliquis 7. History of Hypertension: Y 8. Opioid Therapy greater than 6 weeks: N Opiate Contract Signed: 9. Risk Assessment Tool Provided: LOW RISK 0/3 10. Functional Assessment Tool: 11. Recreational Drug Use: Never Drug Type: Tobacco Use: Former Smoker Tobacco Type: Amount or Packs/day: How Many Years: Alcohol Use: No Frequency: Quant:
== END | disposition home or self-care (01) ==
LOC: PAIN 06:59
DX: M54.16 Radiculopathy, lumbar region (principal); M48.07 Spinal stenosis, lumbosacral region; Z87.891 Personal history of nicotine dependence; Z79.899 Other long term (current) drug therapy

== ENCOUNTER → 2019-03-25 | Outpatient (CLI) | payer OTHER | LOC: SJCVCIMAG 14:41 | DX: I08.8 Other rheumatic multiple valve diseases (principal); E78.00 Pure hypercholesterolemia, unspecified; I48.91 Unspecified atrial fibrillation; D68.59 Other primary thrombophilia; Z87.891 Personal history of nicotine dependence; Z79.899 Other long term (current) drug therapy ==